=== PATIENT | male | born 1945 | race Caucasian/White ===

== ENCOUNTER 2018-03-23 12:50 | Inpatient (IN) ==
[2018-03-23 13:29] VITALS: BMI 49.2
--- NOTE | 2018-03-23 14:46 | History & Physical Report ---
History of Present Illness Date: 03/23/18 Chief complaint: cellulitis HPI: Patient is a 72-year-old male who is a direct admit from [facility] Nieves APRN due to cellulitis of the right lower extremity not responding to antibiotics. Patient reports he's been on doxycycline for approximately the last 2 weeks through the wound care clinic. He had a positive wound culture from the right foot revealing staph aureus and strep agalactiae sensitive to all antibiotics tested. He went to see his PCP today because of diarrhea and fever. States that the diarrhea started yesterday morning. He had too many stools to counts. Today he's had at least 4 liquid stools. No blood noted. He reportedly had a fever yesterday of 101 with chills. No fever this morning but does not feel well. He has also developed some pain in the back of his neck. Lab from his PCPs office revealed a white count of 19.7. Patient is diabetic with recent A1c of 10.1. He has recently had a change to his diabetic medication regimen and reports blood sugars have been in the 200s. Had removal of precancerous skin lesion on face by Dr Miller. Sutures to be removed 03/26 per pt. Review of Systems All systems PM: 10-point ROS was reviewed, no additional remarkable complaints except (muscular pain to the posterior neck, diarrhea, fever yesterday, increased redness and swelling of the right lower extremity, chronic diabetic foot wound, peripheral neuropathy) Past Medical History Medical History: Medical History (Last Reviewed 03/23/18 @ 11:05 by SOLANGE Ryan) BPH associated with nocturia (Chronic) Onychomycosis of multiple toenails with type 2 diabetes mellitus and peripheral neuropathy (Chronic) Hypertension (Chronic) Type 2 diabetes mellitus (Chronic) Obesity (Chronic) Hypercholesteremia (Chronic) Adenomatous polyps (Chronic) Sarcoidosis (Chronic) Surgical History: R knee arthroscopy 2006. R knee replacement 2008. colonoscopy 2015 polyps. Family History: Family History Father , Pancreatic cancer Pancreatic cancer Heart attack Diabetes Mother , 88 Hypercholesteremia Metastatic squamous cell carcinoma Family History: As Above - Social History Smoking status: Never smoker Household members: spouse Current occupational status: retired Current residence: Apartment/Private Home Social history: Mary Ellen Nieves APRN-PCP Medications Home Medications Medication Instructions Recorded Confirmed Type Lysine [l-Lysine] 500 mg PO HS #0 tab 01/05/15 03/23/18 History Advil PM (Ibuprofen 200 2 tab PO PRN PRN tab 04/17/17 03/23/18 History mg-diphenhydramine mg tablet) multivitamin tablet 1 cap PO QAM 04/17/17 03/23/18 History easy touch pen needle See Label Instructions .ROUTE 02/03/18 03/23/18 Rx .COMPLEX #100 each Prilosec (Omeprazole) 20 mg 20 mg PO BID #60 cap 02/12/18 03/23/18 Rx capsule,delayed release polyethylene glycol 3350 17 1 dose PO DAILY 03/03/18 03/23/18 History gram/dose oral powder Foramet (metformin ER) 500 mg 1,000 mg PO BID 03/20/18 03/23/18 History tablet, 24hr Lantus Solostar (insulin glargine) 75 unit SQ BID #45 ml 03/20/18 03/23/18 Rx 100 unit/mL (3 mL) PEN Novolog FlexPen (insulin aspart) 15 unit SQ TIDWM ml 03/20/18 03/23/18 History 100 unit/mL PEN solifenacin 5 mg tablet 5 mg PO HS #90 tab 03/20/18 03/23/18 Rx wheat dextrin 3 gram/3.8 gram oral See Label Instructions PO BID 03/20/18 History powder whey protein isolate 6 gram-25 See Label Instructions PO DAILY g 03/20/1803/23 History kcal/7 gram oral powder Atorvastatin [Lipitor] 40 mg PO HS 03/23/18 03/23/18 History Blood Sugar Diagnostic [Contour 0 strip .ROUTE .MEDSUPPLY 03/23/18 03/23/18 History Test Strip] Calcium 250 + D [Os Reggie + D] 2 tab PO BID 03/23/18 03/23/18 History Dutasteride 0.5 mg PO HS 03/23/18 03/23/18 History Famotidine [Pepcid] 1 tab PO WS PRN 03/23/18 03/23/18 History Lisinopril/Hctz 20/25 [Prinzide 1 tab PO DAILY 03/23/18 03/23/18 History 20/25] Sennosides [Ex-Lax] 15 mg PO HS PRN 03/23/18 03/23/18 History doxycycline hyclate 100 mg tablet 100 mg PO BID 03/23/18 03/23/18 History Allergies Allergy/AdvReac Type Severity Reaction Status Date / Time No Known Drug Allergies AdvReac Unknown Verified 03/23/18 13:27 Exam Vital Signs: Temperature 97.8 F 03/23/18 13:49 Pulse Rate 90 03/23/18 13:49 Respiratory Rate 22 03/23/18 13:49 Blood Pressure 130/66 03/23/18 13:49 Pulse Oximetry 94 03/23/18 13:49 Height/Weight/BMI: Height 1.73 m Weight 147 kg Body Mass Index 49.2 - Constitutional Present: no acute distress, well nourished, well developed - Routine HEENT Exam Head: Present: normocephalic, atraumatic Eye: Present: EOMI, PERRL ENT: Present: mucous membranes moist, oropharynx clear - Routine Neck Exam Present: supple, tenderness (posterior neck. No meningeal signs.). Absent: lymphadenopathy - Routine Respiratory Exam Present: CTA bilaterally. Absent: wheezes - Routine Cardiovascular Exam Present: RRR, no murmur - Routine Abdominal Exam Present: soft, normoactive bowel sounds. Absent: tenderness, distended - Routine Extremities Exam Present: edema (right lower extremity. He has erythema extending up the right lower leg. This is outlined in permanent marker. He has no tenderness. Neuropathy at least up to the knees. Diabetic foot ulcer to the ball of the right foot showing signs of healing. No significant surrounding erythema.), normal capillary refill - Routine Skin Exam Present: dry, warm Comments: incision with sutures to R cheek - no sign of infection - Routine Neurological Exam Present: alert, oriented X3, CN II-XII intact peripheral neuropathy - Routine Psychiatric Exam Present: normal affect, cooperative Results - Labs CBC & Chem 7: 03/23/18 14:45 Assessment and Plan (1) Cellulitis and abscess of right lower extremity Current visit: Yes Status: Acute (2) Diabetic foot ulcer Problem details: Right 1st MT head Current visit: Yes Status: Acute Assessment and Plan: Assessment RLE cellulitis - failed OP tx with doxy Diabetic foot ulcer, right first metatarsal-RLL Acute diarrhea - r/o c. diff given recent/current use of atbx Leukocytosis - POA S/p skin bx on face (Dr Miller) - sutures to be removed 03/26/18 BPH associated with nocturia Hypertension Type 2 diabetes mellitus - A1C 10.1 (02/27) Peripheral neuropathy Obesity Hypercholesteremia Adenomatous polyps Sarcoidosis Plan Admit, IP. Stay likely to exceed 2 overnights to treat infection and given his comorbidities. Start Ancef 1gm q 6 hrs IV for cellulitis. BC x 2 prior to atbx. CRP, lactate and CMP. Repeat CBC and BMP in am to follow blood counts and renal function. Check venous doppler to r/o DVT of RLE. Consult Dr. Bautista for diabetic foot ulceration. Sutures on face to be removed 03/26 if pt is still hospitalized. Check stool for c diff. If neg, will check full GI panel. Accuchecks. Adjust insulin as needed. Lovenox for DVT PPx. DNR. Care to return to [facility] APR[facility] on dismissal. DVT Prophylaxis: SCD's, Lovenox Resuscitation Status: Do Not Resuscitate - Physician Narrative Physician: Vaishali Tolliver MD Narrative: Date: 03/23/18 Time: 163 I have independently evaluated and examined this patient. I reviewed the chart, the patient's history, and the [employer]/PA's documented findings as above. We discussed and formulated the assessment and plan as above with additions as below: Mr. Ahmadi describes onset of malaise with temperature of 101/chills yesterday. He has had increased redness at the right ankle and vaughn accompanying increased drainage from wound at the base of his right first metatarsal. The wound has been previously cultured at the wound care clinic and grown out MARY ALICE and group B strep being treated with doxycycline. Diarrhea as noted above. Last A1c was 10.1 on 03/10/18. NAD, alert, fluent speech Respirations nonlabored Moderate erythema extending from the ankle to the mid vaughn on the right with faint erythema from the mid vaughn to just below the right knee; irregular border , does not extend posteriorly 1 cm punched out ulceration over the right first metatarsal head with clean base and pale tissue at the margins but no necrotic tissue or obvious purulent drainage at present. Dorsal surface of the right foot is not erythematous or hot. WBC obtained prior to arrival this morning 19.7 with 81% neutrophils, 9% lymphocytes; chemistries notable for GFR 74 and alkaline phosphatase 50. CRP 86.4 and lactic acid 1.5. Cellulitis-likely GBS; Ancef initiated, monitor clinically. Wound consult/Dr. Bautista. r/o C. diff, r/o osteo R-foot. Monitor blood sugars-recently converted to short acting insulin in conjunction with Lantus (previously on Lantus) and will likely require dose adjustments with infection/treatment. Recent outpatient records reviewed, discussed with primary provider prior to admission. Sepsis Assessment - Evaluation SIRS Criteria: temperature > 100.9 (by hx), WBC > 12,000, RR > 20 Severe Sepsis: none seen Hospital Course Summary Disclaimer: The visit summary below is not to be considered part of the above Progress Note. Hospital Course: 03/23/18 Admit, IP. Stay likely to exceed 2 overnights to treat infection and given his comorbidities. Start Ancef 1gm q 6 hrs IV for cellulitis. BC x 2 prior to atbx. CRP, lactate and CMP. Repeat CBC and BMP in am to follow blood counts and renal function. Check venous doppler to r/o DVT of RLE. Consult Dr. Bautista for diabetic foot ulceration. Sutures on face to be removed 03/26 if pt is still hospitalized. Check stool for c diff. If neg, will check full GI panel. Accuchecks. Adjust insulin as needed. Lovenox for DVT PPx. DNR. Care to return to [facility] Nieves APRN on dismissal.
[2018-03-23] MEDS: CEFAZOLIN 1 G in NS 100 ML IV SCH ×2 (14:54→21:10)
--- NOTE | 2018-03-23 15:14 | Ultrasound Report ---
EXAM: US venous doppler LE RT LOCATION OF DICTATION: [place] HISTORY: RLE swelling COMPARISON: No prior studies available for comparison. TECHNIQUE: Multiple real-time grayscale sonographic images were obtained of the right lower extremities with color flow and spectral analysis. FINDINGS: The right common femoral, femoral, deep femoral, popliteal, posterior tibial, and peroneal veins are widely patent without filling defects. These vessels demonstrate normal response to augmentation and compression. There are no abnormal fluid collections within the surrounding soft tissues. IMPRESSION: No evidence for right lower extremity deep venous thrombosis. .
[2018-03-23] MEDS ORDERED: FAMOTIDINE 20 MG TABLET PO PRN (16:33)
[2018-03-23] MEDS: INSULIN ASPART 100unit/ml INJECTION SQ SCH (17:18)
[2018-03-23] MEDS: OMEPRAZOLE 20 MG CAPSULE PO SCH (17:19)
[2018-03-23] MEDS: LYSINE 500 MG TABLET PO SCH (21:09)
[2018-03-23] MEDS: DUTASTERIDE 0.5 MG CAPSULE PO SCH (21:09)
[2018-03-23] MEDS: SOLIFENACIN 5mg TABLET PO SCH (21:09)
[2018-03-23] MEDS: INSULIN GLARGINE 100unit/ml INJECTION SQ SCH (21:14)
[2018-03-23] MEDS ORDERED: NS FLUSH BAG 500ml IV PRN (21:18)
--- NOTE | 2018-03-23 21:29 | Consultation ---
DATE OF CONSULTATION 03/23/2019 FINDINGS Mr. Ahmadi is a 72-year-old gentleman whom I was asked to see today as a result of a right diabetic foot ulceration associated with cellulitis. Mr. Ahmadi informs me that I have taken care of him in the past. Patient states that in 2010 he had a similar diabetic foot ulcer at the same location. The patient states that earlier this year in November he had a recurrence of his right diabetic foot ulcer. He states that he has been taken care of through our wound center since November. The patient states that this wound has been quite slow to heal over the last several months. The patient states he recently developed some redness to his right lower extremity and was placed on oral antibiotics consisting of doxycycline. Despite these oral antibiotics the "redness" of his leg has failed to improve. He also has begun to experience some loose stools. Given the failure of this cellulitis to resolve on an outpatient basis the patient was admitted to our facility for further evaluation and care. PAST MEDICAL HISTORY, PAST SURGICAL HISTORY, MEDICATIONS, ALLERGIES, SOCIAL HISTORY, FAMILY HISTORY, REVIEW OF SYSTEMS Performed by my nurse practitioner, Derick Cam APRN. PHYSICAL EXAMINATION GENERAL: Mr. Ahmadi is a 72-year-old gentleman who was seen late this evening. He did not appear to be in any acute distress and was in good spirits. VITAL SIGNS: Temperature 97.3, pulse 74, respirations 18, blood pressure 137/73 , SAO2 94% on room air. HEENT: Normocephalic. Pupils are equally round and react to light and accommodation. NECK: Supple without lymphadenopathy. CHEST: Clear to auscultation bilaterally. HEART: Regular rate and rhythm. Normal S1 and S2 without gallops, murmurs or clicks. ABDOMEN: Palpation of the abdomen reveals it to be soft and nontender. I do not appreciate any evidence for hepatosplenomegaly nor abnormal masses. EXTREMITIES: Attention was focused to the right lower extremity. Patient does have erythema extending up to the [id number] right anterior tibial region. Skin is somewhat warm to the touch. Attention was focused to the plantar aspect of his foot. Patient does have an open right diabetic foot ulcer that does extend into the underlying subcutaneous tissues. The wound was not probed this evening. There was no purulent material coming forth from the open wound. The wound itself was only on the order of about 8 mm in diameter. Visibly, there was no significant necrotic tissue present. NEURO: Cranial nerves II-XII grossly intact. Patient is without focal motor or sensory deficits. LABORATORY/RADIOGRAPHIC EVALUATION The patient had a CMP obtained that was without marked abnormalities. Glucose was slightly elevated at 114. ALT was slightly elevated at 54. C. diff. toxin has been ordered but the patient has not had a loose stool since admission. ASSESSMENT 72-year-old gentleman with Velasco grade 2 right diabetic foot ulcer with associated cellulitis that has failed outpatient therapy. PLAN Tomorrow I will spend more time reviewing his wound care chart. Will see if he has any evidence for osteomyelitis. Will evaluate the wound more formally at the bedside to see if bone is able to be probed to suggest underlying osteomyelitis. I agree with current care of the patient at this time. He has been placed on Ancef for his cellulitis. Blood cultures have been obtained. C. diff. toxin has also been obtained, given his history for diarrhea. Tomorrow when the wound is more formally probed, we may attempt to obtain some deeper cultures from within the wound to guide antibiotic therapy. Will also see if there are any prior microbiology reports through the wound center tomorrow when his EMR is more carefully evaluated. PHYLICIA
[2018-03-24] MEDS: CEFAZOLIN 1 G in NS 100 ML IV SCH ×4 (03:03→20:18)
[2018-03-24] MEDS: SALINE FLUSH 10ml SYRINGE IV PRN (03:03)
[2018-03-24] MEDS: OMEPRAZOLE 20 MG CAPSULE PO SCH ×2 (06:04→17:11)
--- NOTE | 2018-03-24 08:30 | General Surgery Consult Note ---
Consult date: 03/24/18 Attending Physician: Vaishali Tolliver MD [facility] Patient Stated Medical History Hypertension Yes Sleep Apnea No Diabetes Mellitus Type 2 Yes Gastroesophageal Reflux Yes Disease Other GI Yes: CONSTIPATION, diadeticulcer Hx Benign Prostatic Yes Hyperplasia Other Infectious Yes: chicken pox and measles as child Clinic Medical History (Last Reviewed 03/23/18 @ 11:05 by SOLANGE Ryan) BPH associated with nocturia (Chronic Medical) Onychomycosis of multiple toenails with type 2 diabetes mellitus and peripheral neuropathy (Chronic Medical) Hypertension (Chronic Medical) Type 2 diabetes mellitus (Chronic Medical) Obesity (Chronic Medical) Hypercholesteremia (Chronic Medical) Adenomatous polyps (Chronic Medical) Sarcoidosis (Chronic Medical) Surgical History: R knee arthroscopy 2005. R knee replacement 2007. Colonoscopy tubulovillous adenoma 3 01/05/2015. Colonoscopy adenomatous polyps 11/06/2017 Dr. Tirado. Colonoscopy adenomatous polyps 4 11/08/2010 Dr. Tirado. Right foot surgical debridement 09/13/2011 Dr. Bautista. Delayed primary closure right foot wound 10/18/2011. Full thickness skin graft right foot 12/26/2011. Mediastinal endoscopy 07/30/2010 sarcoidosis Family History: Family History (Last Reviewed 03/23/18 @ 11:05 by SOLANGE Ryan) Father , Pancreatic cancer Pancreatic cancer Heart attack age 73 Diabetes Mother , 88 Hypercholesteremia Metastatic squamous cell carcinoma of the mouth to the brain - Social History Smoking status: Never smoker second hand exposure: No Alcohol intake frequency: does not drink Household members: spouse Current occupational status: retired Does patient use chewing tobacco?: No Current residence: Apartment/Private Home Medications Home Medications Medication Instructions Recorded Confirmed Type Lysine [l-Lysine] 500 mg PO HS #0 tab 01/05/15 03/23/18 History Advil PM (Ibuprofen 200 2 tab PO PRN PRN tab 04/17/17 03/23/18 History mg-diphenhydramine mg tablet) multivitamin tablet 1 cap PO QAM 04/17/17 03/23/18 History easy touch pen needle See Label Instructions .ROUTE 02/03/18 03/23/18 Rx .COMPLEX #100 each Prilosec (Omeprazole) 20 mg 20 mg PO BID #60 cap 02/12/18 03/23/18 Rx capsule,delayed release polyethylene glycol 3350 17 1 dose PO DAILY 03/03/18 03/23/18 History gram/dose oral powder Foramet (metformin ER) 500 mg 1,000 mg PO BID 03/20/18 03/23/18 History tablet, 24hr Lantus Solostar (insulin glargine) 75 unit SQ BID #45 ml 03/20/18 03/23/18 Rx 100 unit/mL (3 mL) PEN Novolog FlexPen (insulin aspart) 15 unit SQ TIDWM ml 03/20/18 03/23/18 History 100 unit/mL PEN solifenacin 5 mg tablet 5 mg PO HS #90 tab 03/20/18 03/23/18 Rx wheat dextrin 3 gram/3.8 gram oral See Label Instructions PO BID 03/20/18 History powder whey protein isolate 6 gram-25 See Label Instructions PO DAILY g 03/20/1803/23 History kcal/7 gram oral powder Atorvastatin [Lipitor] 40 mg PO HS 03/23/18 03/23/18 History Blood Sugar Diagnostic [Contour 0 strip .ROUTE .MEDSUPPLY 03/23/18 03/23/18 History Test Strip] Calcium 250 + D [Os Reggie + D] 2 tab PO BID 03/23/18 03/23/18 History Dutasteride 0.5 mg PO HS 03/23/18 03/23/18 History Famotidine [Pepcid] 1 tab PO WS PRN 03/23/18 03/23/18 History Lisinopril/Hctz 20/25 [Prinzide 1 tab PO DAILY 03/23/18 03/23/18 History 20/25] Sennosides [Ex-Lax] 15 mg PO HS PRN 03/23/18 03/23/18 History doxycycline hyclate 100 mg tablet 100 mg PO BID 03/23/18 03/23/18 History Allergies Allergy/AdvReac Type Severity Reaction Status Date / Time No Known Drug Allergies AdvReac Unknown Verified 03/23/18 13:27 Review of Systems 10-point ROS: negative except for HPI and the following: - Eyes/Ears/Nose/Throat Eyes: Present: other (wears glasses) Ear Nose Throat: Absent: hearing problems - Cardiovascular Cardiovascular: Absent: chest pain (angina) - Respiratory Respiratory: Absent: sleep apnea - Gastrointestinal Gastrointestinal: Present: diarrhea (at home, none since admission.) - Genitourinary Additional comments: Positive for urinary urgency and occasional dribbling. - Endocrine Endocrine: Present: diabetes - Vital Signs Last Vital Signs Temp 98.6 F 03/24/18 07:00 Pulse 79 03/24/18 07:00 Resp 20 03/24/18 07:00 BP 142/87 H 03/24/18 07:00 Pulse Ox 94 03/24/18 07:00 - Laboratory Result Diagrams: 03/24/18 04:17 03/24/18 04:17 - Microbiogy Microbiology 03/23/18 14:41 Peripheral/Iv Start Blood Culture - Preliminary Culture Initiated - Results Pending 03/23/18 14:45 Peripheral/Iv Start Blood Culture - Preliminary Culture Initiated - Results Pending General Surgery Results - Results Labs: 03/24/18 04:17 03/24/18 04:17 Microbiology: Microbiology 03/23/18 14:41 Peripheral/Iv Start Blood Culture - Preliminary Culture Initiated - Results Pending 03/23/18 14:45 Peripheral/Iv Start Blood Culture - Preliminary Culture Initiated - Results Pending
[2018-03-24] MEDS: INSULIN GLARGINE 100unit/ml INJECTION SQ SCH ×2 (08:38→20:23)
[2018-03-24] MEDS: INSULIN ASPART 100unit/ml INJECTION SQ SCH ×3 (08:38→17:11)
[2018-03-24] MEDS: ENOXAPARIN 40 MG/0.4 ML INJECTION SQ SCH (08:38)
[2018-03-24] MEDS: LISINOPRIL/HCTZ 20/25 MG TABLET PO SCH (08:39)
[2018-03-24] MEDS ORDERED: ACETAMINOPHEN 325 MG TABLET PO PRN (09:55)
[2018-03-24] MEDS ORDERED: BISACODYL 10 MG SUPPOSITORY RECTALLY PRN (09:55)
--- NOTE | 2018-03-24 13:56 | Progress Note ---
- Date 03/24/18 Subjective: Patient is seen sitting in his bed this afternoon in f-u of RLL cellulitis, fever, diarrhea and diabetic foot wound. He reports he "is bored." He feels fine. No fever, chills, n/v or pain. He has had no further diarrhea since he was in his doctor's office prior to admission other than the stool he produced this am which was formed. Objective Vital signs: Temperature 98.6 F 03/24/18 07:00 Pulse Rate 79 03/24/18 07:00 Respiratory Rate 20 03/24/18 07:00 Blood Pressure 142/87 H 03/24/18 07:00 Pulse Oximetry 94 03/24/18 07:00 Height/Weight/BMI: Height 1.73 m Weight 145 kg Body Mass Index 49.2 - Constitutional Present: no acute distress, well nourished, well developed - Routine HEENT Exam Head: Present: normocephalic, atraumatic - Routine Respiratory Exam Present: CTA bilaterally. Absent: wheezes - Routine Cardiovascular Exam Present: RRR, no murmur - Routine Abdominal Exam Present: soft, non distended, non tender - Routine Extremities Exam Present: normal capillary refill Comments: edema and erythema to RLL has significantly improved since yesterday. His foot ulcer shows continued signs of healing with mild drainage on the dressing. No surrounding erythema of the foot wound. - Routine Skin Exam Present: dry, warm - Routine Neurological Exam Present: alert, oriented X3 - Routine Lymphatic Exam Lymphatic: Absent: adenopathy - Routine Psychiatric Exam Present: normal affect, cooperative Results - Labs CBC & Chem 7: 03/24/18 04:17 03/24/18 04:17 Microbiology Results: Microbiology 03/23/18 14:41 Peripheral/Iv Start Blood Culture - Preliminary Culture Initiated - Results Pending 03/23/18 14:45 Peripheral/Iv Start Blood Culture - Preliminary Culture Initiated - Results Pending Assessment and Plan (1) Cellulitis and abscess of right lower extremity Current visit: Yes Status: Acute (2) Diabetic foot ulcer Problem details: Right 1st MT head Current visit: Yes Status: Acute Assessment and Plan: Assessment RLE cellulitis - failed OP tx with doxy Diabetic foot ulcer, right first metatarsal-RLL Velasco grade 2 right diabetic foot ulcer with associated cellulitis that has failed outpatient therapy Acute diarrhea - r/o c. diff given recent/current use of atbx Leukocytosis (POA) S/p skin bx on face (Dr Miller) - sutures to be removed 03/26/18 BPH associated with nocturia Hypertension Type 2 diabetes mellitus - A1C 10.1 (02/27) Peripheral neuropathy Hypercholesteremia Adenomatous polyps Sarcoidosis Morbid obesity with BMI 48.6 Plan Patient significantly improved. Cellulitis improving with Ancef. WBC improving 20.5-->14.8. Dr. Bautista saw pt yesterday and plans to debride wound sometime today. C diff testing not performed as pt has not had any further liquid stools. BS's reviewed. Continue to trend - no adjustments to insulin at present. DVT Prophylaxis: Lovenox Resuscitation Status: Do Not Resuscitate - Time spent with patient Time with patient PN: 25 minutes - Physician Narrative Physician: Phil Ge MD Narrative: Date: 03/24/18 Time: 1507 Have independently interviewed and examined pt. Chart reviewed. Case discussed with my PA. Care plan developed with my supervision; agree with above. Doing well today. No f/c. Not having loose stool-if anything, more constipated this am. No nausea. Not having pain in leg. Breathing well. Lungs: decreased, no distress CV: regular AB: soft nt/nd EXT: Erythema to LE showing decrease from prior demarkation. MSE: awake alert appropriate Plan: Continue with cefazolin for antimicrobial coverage. Wound care and debridement as per Dr Bautista. Monitor lab. Clinically showing improvement. Hospital Course Summary Disclaimer: The visit summary below is not to be considered part of the above Progress Note. Hospital Course: 03/23/18 Admit, IP. Stay likely to exceed 2 overnights to treat infection and given his comorbidities. Start Ancef 1gm q 6 hrs IV for cellulitis. BC x 2 prior to atbx. CRP, lactate and CMP. Repeat CBC and BMP in am to follow blood counts and renal function. Venous doppler neg for DVT. Consult Dr. Bautista for diabetic foot ulceration. Sutures on face to be removed 03/26 if pt is still hospitalized. Check stool for c diff. If neg, will check full GI panel. Accuchecks. Adjust insulin as needed. Lovenox for DVT PPx. DNR. Care to return to Mayr Ellen Nieves APRN on dismissal. 03/24/18 Patient significantly improved. Cellulitis improving with Ancef. WBC improving 20.5-->14.8. Dr. Bautista saw pt yesterday and plans to debride wound sometime today. C diff testing not performed as pt has not had any further liquid stools.
--- NOTE | 2018-03-24 19:21 | Progress Note ---
DATE OF SERVICE 03/24/2018 FINDINGS Mr. Ahmadi was seen this evening on rounds. He was without complaints. He states that he has received several dose of antibiotics today. The patient states that he believes that the redness involving his right lower extremity has begun to subside. He states it is still "warm to the touch." PHYSICAL EXAM VITAL SIGNS: T-max 99.3. Current vitals include temperature 98.6, pulse 76, respirations 18 feet, blood pressure 114/67, SAO2 95% on room air. HEENT: Normocephalic. Pupils are equally round and react to light and accommodation. CHEST: Clear to auscultation bilaterally. HEART: Regular rate and rhythm. Normal S1 and S2 without gallops, murmurs or clicks. EXTREMITIES: Attention was focused to the plantar aspect of the right foot. Overlying the first metatarsal head the patient does have a small opening on the order of about 8 mm in diameter. The wound was carefully inspected. There is a hypertrophic rim of callus surrounding the wound. Wound was probed with a hemostat as well as a curette. There was one small opening present within the depth of the wound. I did feel that one could appreciate bone with a hemostat being advanced into the small opening, i.e., bone was able to be palpated within the base of the wound, indicative of possible osteomyelitis. The patient 's erythema is subsiding involving his anterior tibial surface. However, the skin is still erythematous distally and is warm to the touch. ASSESSMENT 72-year-old gentleman with right diabetic foot ulcer with associated cellulitis. Rule out osteomyelitis. PLAN Given the fact that bone is able to be probed within the depth of the wound it was my recommendation that we go ahead and proceed with an MRI of his right foot to rule out osteomyelitis. Will order MRI for tomorrow. Will await results and proceed accordingly. PHYLICIA
[2018-03-24] MEDS: DUTASTERIDE 0.5 MG CAPSULE PO SCH (20:18)
[2018-03-24] MEDS: LYSINE 500 MG TABLET PO SCH (20:18)
[2018-03-24] MEDS: SOLIFENACIN 5mg TABLET PO SCH (20:18)
[2018-03-25] MEDS: CEFAZOLIN 1 G in NS 100 ML IV SCH ×4 (03:01→21:45)
[2018-03-25] MEDS: OMEPRAZOLE 20 MG CAPSULE PO SCH ×2 (05:41→17:43)
[2018-03-25] MEDS: INSULIN ASPART 100unit/ml INJECTION SQ SCH ×3 (08:32→17:43)
[2018-03-25] MEDS: INSULIN GLARGINE 100unit/ml INJECTION SQ SCH ×2 (08:32→21:47)
[2018-03-25] MEDS: ENOXAPARIN 40 MG/0.4 ML INJECTION SQ SCH (08:32)
[2018-03-25] MEDS: SALINE FLUSH 10ml SYRINGE IV PRN ×2 (08:35→21:48)
[2018-03-25] MEDS: LISINOPRIL/HCTZ 20/25 MG TABLET PO SCH (08:35)
--- NOTE | 2018-03-25 08:47 | Progress Note ---
- Date 03/25/18 Subjective: Patient is seen this morning in follow-up of right lower leg cellulitis and diabetic foot ulcer. He reports he is feeling fine. No fever or chills. He is having some complaint of pain in the upper aspect of the right lower leg which is new for him. He states he saw Dr. Bautista and Dr. Bautista found a "tunnel " in his foot and plans to check an MRI of his foot today. He has had no further stools since the one stool he had yesterday. Appetite is good. No nausea or vomiting. Objective Vital signs: Temperature 98.0 F 03/25/18 07:41 Pulse Rate 79 03/25/18 07:41 Respiratory Rate 18 03/25/18 07:41 Blood Pressure 134/82 03/25/18 07:41 Pulse Oximetry 94 03/25/18 07:41 Height/Weight/BMI: Height 1.73 m Weight 144.5 kg Body Mass Index 49.2 - Constitutional Present: no acute distress, well nourished, well developed - Routine HEENT Exam Head: Present: normocephalic, atraumatic - Routine Respiratory Exam Present: CTA bilaterally. Absent: wheezes - Routine Cardiovascular Exam Present: RRR, no murmur - Routine Abdominal Exam Present: soft, non distended, non tender - Routine Extremities Exam Present: no edema (left lower extremity), normal capillary refill Comments: Right foot ulceration on the plantar surface over the first metatarsal head with some callus formation. Erythema of the right lower extremity is receding from the previous outline. Swelling improved from initial evaluation. Still has some erythema and swelling distally. The area where his pain is is several cm distal to the anterior knee and there is no erythema or abnormality in this area at this time. - Routine Skin Exam Present: dry, warm - Routine Neurological Exam Present: alert, oriented X3 - Routine Lymphatic Exam Lymphatic: Absent: adenopathy - Routine Psychiatric Exam Present: normal affect, cooperative Results - Labs CBC & Chem 7: 03/25/18 04:06 03/25/18 04:06 Microbiology Results: Microbiology 03/23/18 14:41 Peripheral/Iv Start Blood Culture - Preliminary No Growth After 1 Day 03/23/18 14:45 Peripheral/Iv Start Blood Culture - Preliminary No Growth After 1 Day Assessment and Plan (1) Cellulitis and abscess of right lower extremity Current visit: Yes Status: Acute (2) Diabetic foot ulcer Problem details: Right 1st MT head Current visit: Yes Status: Acute Assessment and Plan: Assessment RLE cellulitis - failed OP tx with doxy Diabetic foot ulcer, right first metatarsal Velasco grade 2 right diabetic foot ulcer with associated cellulitis that has failed outpatient therapy Acute diarrhea -resolved on day of admission Leukocytosis (POA)-improving S/p skin bx on face (Dr Miller) - sutures to be removed 03/26/18 BPH associated with nocturia Hypertension Type 2 diabetes mellitus - A1C 10.1 (02/27) Peripheral neuropathy Hypercholesteremia Adenomatous polyps Sarcoidosis Morbid obesity with BMI 48.6 Plan Leukocytosis continues to improve - 20.5-->14.8-->11.5. Vitals are stable. Patient has MRI of the right foot to rule out osteomyelitis scheduled for a later this morning per Dr. Bautista Day #3 of Ancef. Sugars reviewed and are stable. Continue current insulin regimen. DVT Prophylaxis: SCD's Resuscitation Status: Do Not Resuscitate - Time spent with patient Time with patient PN: 25 minutes - Physician Narrative Physician: Phil Ge MD Narrative: Date: 03/25/18 Time: 1742 Have independently interviewed & examined pt. Chart reviewed. Case discussed with CM & my PA. Care plan developed with my supervision; agree with above. Doing well except not stools (worried about passing flatus due to all the diarrhea he had before admission). Notes ab bloating and gas-passing flatus helps. NO f/c. No leg pain. Encouraged that erythema of leg decreasing. Lungs: clear bilaterally CV: regular AB: soft obese nt/nd BS decreased EXT: continued decrease erythema to leg. MSE: awake alert appropriate Plan: Continue with Ancef for coverage, clinically improving. MRI showing possible Osteomyelitis-likely need further debridement by Dr Bautista. Will start routine Miralax due to constipation-prn MOM and Dulcolax (does take bowel medications routinely at home). Hospital Course Summary Disclaimer: The visit summary below is not to be considered part of the above Progress Note. Hospital Course: 03/23/18 Admit, IP. Stay likely to exceed 2 overnights to treat infection and given his comorbidities. Start Ancef 1gm q 6 hrs IV for cellulitis. BC x 2 prior to atbx. CRP, lactate and CMP. Repeat CBC and BMP in am to follow blood counts and renal function. Venous doppler neg for DVT. Consult Dr. Bautista for diabetic foot ulceration. Sutures on face to be removed 03/26 if pt is still hospitalized. Check stool for c diff. If neg, will check full GI panel. Accuchecks. Adjust insulin as needed. Lovenox for DVT PPx. DNR. Care to return to [facility] on dismissal. 03/24/18 Patient significantly improved. Cellulitis improving with Ancef. WBC improving 20.5-->14.8. Dr. Bautista feels the wound tunnels to the bone. Has scheduled MRI of the foot to rule out osteomyelitis for tomorrow. C diff testing not performed as pt has not had any further liquid stools. 03/25/18 Leukocytosis continues to improve - 20.5-->14.8-->11.5. Vitals are stable. Patient has MRI of the right foot to rule out osteomyelitis scheduled for a later this morning per Dr. Bautista Day #3 of Anc. Sugars reviewed and are stable. Continue current insulin regimen.
[2018-03-25] MEDS ORDERED: GADOTERIDOL 279.3mg/ml - 10ml vial IVP ONE (10:27)
[2018-03-25] MEDS ORDERED: SALINE FLUSH 10ml SYRINGE ONE (10:28)
--- NOTE | 2018-03-25 12:22 | General Surgery Progress Note ---
Subjective Narrative: Pt feeling well overall. Reports mild pain distal to R knee. He states this started yesterday. No known injury. States diarrhea has subsided; he had one BM yesterday and none today. - Vital Signs Last Vital Signs Temp 98.0 F 03/25/18 07:41 Pulse 79 03/25/18 07:41 Resp 18 03/25/18 07:41 BP 134/82 03/25/18 07:41 Pulse Ox 94 03/25/18 07:41 - Laboratory Result Diagrams: 03/25/18 04:06 03/25/18 04:06 - Microbiogy Microbiology 03/23/18 14:41 Peripheral/Iv Start Blood Culture - Preliminary No Growth After 1 Day 03/23/18 14:45 Peripheral/Iv Start Blood Culture - Preliminary No Growth After 1 Day - Radiology 03/25/18 MRI report pending - Abnormal Exam Abdominal: obese Skin: Right anterior lower leg has warmth and erythema with diffuse borders, decreased in size since admission. Ulceration to plantar surface of right foot over first metatarsal head with surrounding callus. Additional Abnormal Findings: Tender to palpation over anterior R lower leg, approximately 5 cm distal to patella. No associated erythema or skin changes. - Normal Exam General: awake, alert, oriented, no acute distress Abdominal: soft, no organomegaly, no guarding, no rebound, non-tender Psychiatric: normal affect, normal mood Neurological: CN 2-12 grossly intact Assessment and Plan (1) Diabetic foot ulcer Current Visit: Yes Status: Acute Qualifiers: Laterality: right Problem details: Right 1st MT head Plan: Continue cefazolin. Further tx will be guided by MRI results. Hospital Course Summary Disclaimer: The visit summary below is not to be considered part of the above Progress Note. Hospital Course: 03/23/18 Admit, IP. Stay likely to exceed 2 overnights to treat infection and given his comorbidities. Start Ancef 1gm q 6 hrs IV for cellulitis. BC x 2 prior to atbx. CRP, lactate and CMP. Repeat CBC and BMP in am to follow blood counts and renal function. Venous doppler neg for DVT. Consult Dr. Bautista for diabetic foot ulceration. Sutures on face to be removed 03/26 if pt is still hospitalized. Check stool for c diff. If neg, will check full GI panel. Accuchecks. Adjust insulin as needed. Lovenox for DVT PPx. DNR. Care to return to [facility] on dismissal. 03/24/18 Patient significantly improved. Cellulitis improving with Ancef. WBC improving 20.5-->14.8. Dr. Bautista feels the wound tunnels to the bone. Has scheduled MRI of the foot to rule out osteomyelitis for tomorrow. C diff testing not performed as pt has not had any further liquid stools. 03/25/18 Leukocytosis continues to improve - 20.5-->14.8-->11.5. Vitals are stable. Patient has MRI of the right foot to rule out osteomyelitis scheduled for a later this morning per Dr. Bautista Day #3 of Anc. Sugars reviewed and are stable. Continue current insulin regimen.
--- NOTE | 2018-03-25 13:21 | Magnetic Resonance Report ---
Indication: diabetic foot ulcer, rule out osteomyelitis Right foot PROCEDURE: MR foot RT wo/w con: Encounter: Initial Comparison: Right foot radiographs dated January 09, 2018 and right foot MRI dated August 30, 2011 Technique: Multiplanar multisequence MR imaging of the right foot was performed with and without contrast. Contrast: 29 mL ProHance Findings: Chronic ulcer underlying the first metatarsophalangeal joint. Interval displacement of the sesamoid bones compared to the prior study which are now splayed out to each side. The sesamoid bones demonstrate decreased T1 signal intensity compared to the prior study without focal bone marrow edema on the fluid sensitive sequences. There is interval worsening in degenerative change in the first metatarsophalangeal joint with new osteophytes on the first metatarsal head. There is however no evidence of focal bone marrow edema or enhancement in the first metatarsal head to confirm infection. There is enhancement of the plantar subcutaneous tissues in this area with a small rim-enhancing phlegmon on axial image #17 measuring 2.3 x 0.5 cm in diameter. No drainable abscess. Chronic bony abnormalities with cortical thickening in the first and second metatarsal shafts. The remaining bone marrow signal intensity is grossly normal. The Lisfranc ligament is intact. Mild to moderate degenerative change in the midfoot. Muscular signal intensity is normal. Osseous fusion of the great toe interphalangeal joint. Impression: Chronic skin ulcer underlying the first metatarsophalangeal joint with possible osteomyelitis involving the sesamoid bones of the great toe. .
--- NOTE | 2018-03-25 17:08 | Progress Note ---
DATE OF SERVICE 03/25/2018 FINDINGS Mr. Ahmadi was seen earlier this morning on rounds. He is without complaints. PHYSICAL EXAM VITAL SIGNS: Temperature 98.0, pulse 79, respirations 18, blood pressure 134/82 , SAO2 94% on room air. HEENT: Normocephalic. Pupils are equally round and react to light and accommodation. CHEST: Clear to auscultation bilaterally. HEART: Regular rate and rhythm. Normal S1 and S2 without gallops, murmurs or clicks. EXTREMITIES: Attention was focused to the right lower extremity. Patient does have decreasing erythema present involving the anterior tibial surface. Ulcer upon the right foot overlying the first metatarsal head remains stable. No evidence for coby purulent drainage coming forth from wound itself. LABORATORY/RADIOGRAPHIC EVALUATION The patient had a CBC today and his white count is improving at 11.5. BMP obtained and found to be stable. MRI of his foot has been ordered and is pending at time of dictation. ASSESSMENT 72-year-old gentleman with right diabetic foot ulceration with associated cellulitis. Prior culture polymicrobial in nature, oxacillin sensitive. PLAN Continue with current antibiotics. Will await the MRI results and proceed accordingly with further recommendations thereafter. Will continue with current wound dressings. Will continue to follow along the patient's care. PHYLICIA
[2018-03-25] MEDS ORDERED: SENNOSIDES 8.6 MG TABLET PO PRN (19:50)
[2018-03-25] MEDS: SOLIFENACIN 5mg TABLET PO SCH (21:47)
[2018-03-25] MEDS: DUTASTERIDE 0.5 MG CAPSULE PO SCH (21:47)
[2018-03-25] MEDS: LYSINE 500 MG TABLET PO SCH (21:48)
[2018-03-25] MEDS: CALCIUM 250 + VIT D 125 TABLET PO SCH (21:56)
[2018-03-26] MEDS: CEFAZOLIN 1 G in NS 100 ML IV SCH ×4 (03:26→21:30)
[2018-03-26] MEDS: OMEPRAZOLE 20 MG CAPSULE PO SCH ×2 (06:09→17:10)
[2018-03-26] MEDS: CALCIUM 250 + VIT D 125 TABLET PO SCH ×2 (08:51→21:29)
[2018-03-26] MEDS: POLYETHYL GLYCOL 3350 17gm PACKET PO SCH (08:51)
[2018-03-26] MEDS: INSULIN GLARGINE 100unit/ml INJECTION SQ SCH ×2 (08:52→21:28)
[2018-03-26] MEDS: ENOXAPARIN 40 MG/0.4 ML INJECTION SQ SCH (08:52)
[2018-03-26] MEDS: INSULIN ASPART 100unit/ml INJECTION SQ SCH ×3 (08:52→17:10)
[2018-03-26] MEDS: LISINOPRIL/HCTZ 20/25 MG TABLET PO SCH (08:52)
--- NOTE | 2018-03-26 11:26 | Progress Note ---
- Date 03/26/18 Subjective: Francesco is seen today in follow-up. He is feeling much better. Remains afebrile. Reports redness on right lower extremity is much improved. Denies any pain. Chart is reviewed for collateral information. Objective Vital signs: Temperature 97.1 F 03/26/18 07:28 Pulse Rate 66 03/26/18 07:28 Respiratory Rate 16 03/26/18 07:28 Blood Pressure 131/69 03/26/18 07:28 Pulse Oximetry 95 03/26/18 07:28 Height/Weight/BMI: Height 1.73 m Weight 144.6 kg Body Mass Index 49.2 Comments: Gen.: Patient is awake, alert. Very pleasant and appears well. Neck: Supple. No cervical lymphadenopathy. Cardiovascular: S1, S2. Regular rate and rhythm. Pulmonary: Lungs are diminished bilaterally, but clear. He is not short of air. No crackles or wheezes. Abdomen: Soft, nontender, nondistended. Morbidly obese. Bowel sounds are active 4 quadrants. Extremities: Right lower extremity, redness is much improved from previously marked lines. Dressing is in place over the the right great toe and first metatarsal joint where wound is. Some edema in the right lower extremity consistent with known cellulitis. Extremities are warm with good pedal pulses. Results - Labs CBC & Chem 7: 03/26/18 04:09 03/26/18 04:09 Microbiology Results: Microbiology 03/23/18 14:41 Peripheral/Iv Start Blood Culture - Preliminary No Growth After 2 Days 03/23/18 14:45 Peripheral/Iv Start Blood Culture - Preliminary No Growth After 2 Days Wound cx: 1. Coag neg staph, rebollar sensitive 2. GBS 3. light growth, anaerobes - Imaging and Cardiology MRI LE Additional comments: Impression: Chronic skin ulcer underlying the first metatarsophalangeal joint with possible osteomyelitis involving the sesamoid bones of the great toe. . Assessment and Plan (1) Cellulitis and abscess of right lower extremity Current visit: Yes Status: Acute (2) Diabetic foot ulcer Problem details: Right 1st MT head Current visit: Yes Status: Acute Assessment and Plan: Assessment RLE cellulitis - failed OP tx with doxy Diabetic foot ulcer, right first metatarsal Velasco grade 2 right diabetic foot ulcer with associated cellulitis - failed outpatient therapy Possible osteomyelitis involving the sesamoid bones of the great toe per MRI Acute diarrhea -resolved on day of admission Leukocytosis (POA)-improving S/p skin bx on face (Dr Miller) - sutures to be removed 03/26/18 BPH associated with nocturia Hypertension Type 2 diabetes mellitus - A1C 10.1 (02/27) Peripheral neuropathy Hypercholesteremia Adenomatous polyps Sarcoidosis Morbid obesity with BMI 48.6 GERD Plan Ancef day #4. Cultures reviewed, positive for pansensitive coag-negative staph, group B strep , and light growth of anaerobes. As patient is markedly improving on Ancef, will continue that medication for now. Consider anaerobic coverage if condition worsens, or if a bone biopsy is obtained that reveals certain anaerobic growth. Blood cultures 2 remain negative. Consider ID consult for antibiotic recommendations given likely osteomyelitis; will await further plan per Dr. Bautista. Diabetes is currently well controlled. Patient is afebrile. Normotensive on current medications. No further loose stools reported. C.Diff cancelled. Patient is on both BID PPI and PRN H2RB @ home for GERD. Lovenox for DVT px. Home soon? Joo Discussed with Dr Bautista-does not feel he needs to due further debridement. Will restart Metformin as not anticipating surgery. Consult with ID for antimicrobial recommendations-discussed with patient that likely need extended course of IV antibiotics and PICC line. Continue with wound care. Clinically improving. DVT Prophylaxis: Lovenox GI Prophylaxis: Pepcid Resuscitation Status: Do Not Resuscitate - Time spent with patient Time with patient PN: 25 minutes - Physician Narrative Physician: Phil Ge MD Narrative: Date: 03/26/18 Time: 1338 Have independently interviewed and examined pt. Chart reviewed. Case discussed with MIKE, Dr Bautista, and my SURGICAL GARMENT ASSEMBLER. Care plan developed with my supervision; agree with above. Doing well today. Not having f/c. Redness decreasing. No pain to RLE (but has neuropathy). Breathing well. Eating well. No ab pain. Not had stool, but feels he is close. Lungs: decreased bilaterally, no crackles/wheezes/distress CV: regular AB: soft nt/nd +BS EXT: slight decreased erythema MSE: awake alert appropriate Plan: Will continue with cefazolin. Discussed with Dr Bautista-does not feel he needs to due further debridement. Will restart Metformin as not anticipating surgery. Consult with ID for antimicrobial recommendations-discussed with patient that likely need extended course of IV antibiotics and PICC line. Continue with wound care. Clinically improving. Hospital Course Summary Disclaimer: The visit summary below is not to be considered part of the above Progress Note. Hospital Course: 03/23/18 Admit, IP. Stay likely to exceed 2 overnights to treat infection and given his comorbidities. Start Ancef 1gm q 6 hrs IV for cellulitis. BC x 2 prior to atbx. CRP, lactate and CMP. Repeat CBC and BMP in am to follow blood counts and renal function. Venous Doppler neg for DVT. Consult Dr. Bautista for diabetic foot ulceration. Sutures on face to be removed 03/26 if pt is still hospitalized. Check stool for c diff. If neg, will check full GI panel. Accuchecks. Adjust insulin as needed. Lovenox for DVT PPx. DNR. Care to return to [facility] on dismissal. 03/24/18 Patient significantly improved. Cellulitis improving with Ancef. WBC improving 20.5-->14.8. Dr. Bautista feels the wound tunnels to the bone. Has scheduled MRI of the foot to rule out osteomyelitis for tomorrow. C diff testing not performed as pt has not had any further liquid stools. 03/25/18 Leukocytosis continues to improve - 20.5-->14.8-->11.5. Vitals are stable. Patient has MRI of the right foot to rule out osteomyelitis scheduled for a later this morning per Dr. Bautista Day #3 of Ancef. Sugars reviewed and are stable. Continue current insulin regimen. 03/26/18 Ancef day #4. Cultures reviewed, positive for pansensitive coag-negative staph, group B strep , and light growth of anaerobes. As patient is markedly improving on Ancef, will continue that medication for now. Blood cultures [address] with Dr Bautista-does not feel he needs to due further debridement. Will restart Metformin as not anticipating surgery. Consult with ID for antimicrobial recommendations- likely need extended course of IV antibiotics and PICC line. Dr Mann to see patient tomorrow. Patient is afebrile. Normotensive on current medications. Restart Lipitor - liver enzymes normal. No further loose stools reported. C.Diff cancelled.
--- NOTE | 2018-03-26 18:03 | Progress Note ---
DATE OF SERVICE 03/26/2018 FINDINGS Mr. Ahmadi was seen earlier today on rounds. He denies any element of pain involving his right lower extremity. Previously he had some discomfort beneath the right knee involving a prior area of erythema. Patient states this pain has now completely resolved. PHYSICAL EXAM VITAL SIGNS: Afebrile, normotensive. Please refer to EMR. Last recorded vitals include temperature 97.1, pulse 56, respirations 16, blood pressure 131/ 69, SAO2 95% on room air. HEENT: Normocephalic. Pupils are equally round and react to light and accommodation. CHEST: Clear to auscultation bilaterally. HEART: Regular rate and rhythm. Normal S1 and S2 without gallops, murmurs or clicks. EXTREMITIES: Attention was focused to the right lower extremity. His prior erythema at this time has essentially resolved. I did not remove the dressing upon the plantar aspect of the foot. Allevyn foam remains to be intact. There is no periwound erythema surrounding the edge of the dressing. LABORATORY/RADIOGRAPHIC EVALUATION I did review the dictated report from his foot MRI performed yesterday. There was a chronic skin ulcer overlying the first metatarsal joint with possible osteomyelitis involving the sesamoid bones of the great toe. There was decreased T1 signal intensity compared to prior study with focal bone marrow edema. ASSESSMENT 72-year-old gentleman with Velasco grade 3 right diabetic foot ulcer. PLAN Continue with current wound care dressing regimen. Would recommend consulting Infectious Disease for further antibiotic recommendations given this MRI finding. Otherwise, will continue with current care. Patient is stable from a general surgical/wound care standpoint at this time. PHYLICIA
[2018-03-26] MEDS ORDERED: ATORVASTATIN 40 MG TABLET PO SCH (21:00)
[2018-03-26] MEDS: DUTASTERIDE 0.5 MG CAPSULE PO SCH (21:29)
[2018-03-26] MEDS: SOLIFENACIN 5mg TABLET PO SCH (21:29)
[2018-03-26] MEDS: LYSINE 500 MG TABLET PO SCH (21:30)
[2018-03-27] MEDS: CEFAZOLIN 1 G in NS 100 ML IV SCH ×2 (02:30→09:24)
[2018-03-27] MEDS: OMEPRAZOLE 20 MG CAPSULE PO SCH (05:57)
[2018-03-27] MEDS: LISINOPRIL/HCTZ 20/25 MG TABLET PO SCH (08:16)
[2018-03-27] MEDS: CALCIUM 250 + VIT D 125 TABLET PO SCH (08:17)
[2018-03-27] MEDS: ENOXAPARIN 40 MG/0.4 ML INJECTION SQ SCH (08:18)
[2018-03-27] MEDS: INSULIN ASPART 100unit/ml INJECTION SQ SCH ×2 (08:23→12:07)
[2018-03-27] MEDS: POLYETHYL GLYCOL 3350 17gm PACKET PO SCH (08:23)
--- NOTE | 2018-03-27 09:14 | General Surgery Progress Note ---
Subjective Narrative: Pt feeling well overall. He states he still occasionally feels warmth in his right lower leg but that it is improved. Denies pain in R LE. Reports diarrhea has resolved. Last BM was this morning. - Vital Signs Last Vital Signs Temp 98.4 F 03/27/18 07:25 Pulse 71 03/27/18 07:25 Resp 18 03/27/18 07:25 BP 165/88 H 03/27/18 07:25 Pulse Ox 93 03/27/18 07:25 - Laboratory Result Diagrams: 03/27/18 04:33 03/26/18 04:09 - Microbiogy Microbiology 03/23/18 14:41 Peripheral/Iv Start Blood Culture - Preliminary No Growth After 3 Days 03/23/18 14:45 Peripheral/Iv Start Blood Culture - Preliminary No Growth After 3 Days - Radiology R foot MRI 03/25/18 Findings: Chronic ulcer underlying the first metatarsophalangeal joint. Interval displacement of the sesamoid bones compared to the prior study which are now splayed out to each side. The sesamoid bones demonstrate decreased T1 signal intensity compared to the prior study without focal bone marrow edema on the fluid sensitive sequences. There is interval worsening in degenerative change in the first metatarsophalangeal joint with new osteophytes on the first metatarsal head. There is however no evidence of focal bone marrow edema or enhancement in the first metatarsal head to confirm infection. There is enhancement of the plantar subcutaneous tissues in this area with a small rim-enhancing phlegmon on axial image #17 measuring 2.3 x 0.5 cm in diameter. No drainable abscess. Chronic bony abnormalities with cortical thickening in the first and second metatarsal shafts. The remaining bone marrow signal intensity is grossly normal. The Lisfranc ligament is intact. Mild to moderate degenerative change in the midfoot. Muscular signal intensity is normal. Osseous fusion of the great toe interphalangeal joint. Impression: Chronic skin ulcer underlying the first metatarsophalangeal joint with possible osteomyelitis involving the sesamoid bones of the great toe. - Abnormal Exam Skin: R anterior tibial erythema, decreased in size. Decreased warmth. Ulcer on plantar surface of right foot overlying the first metatarsal remains stable. No surrounding erythema or purulent drainage. Additional Abnormal Findings: 1+ pitting edema R LE. SCD on L LE. - Normal Exam General: awake, alert, oriented, no acute distress Eyes: sclera clear Cardiovascular: regular rhythm, regular rate Respiratory: clear all barba, no labored breathing Abdominal: BS normo active x4, soft, no masses, no organomegaly, no guarding, no rebound, non-tender Psychiatric: normal affect, normal mood Neurological: CN 2-12 grossly intact Assessment and Plan (1) Diabetic foot ulcer Current Visit: Yes Status: Acute Qualifiers: Laterality: right Problem details: Right 1st MT head Plan: Continue current tx plan. Infectious disease has been consulted; will await their recommendations. Hospital Course Summary Disclaimer: The visit summary below is not to be considered part of the above Progress Note. Hospital Course: 03/23/18 Admit, IP. Stay likely to exceed 2 overnights to treat infection and given his comorbidities. Start Ancef 1gm q 6 hrs IV for cellulitis. BC x 2 prior to atbx. CRP, lactate and CMP. Repeat CBC and BMP in am to follow blood counts and renal function. Venous Doppler neg for DVT. Consult Dr. Bautista for diabetic foot ulceration. Sutures on face to be removed 03/26 if pt is still hospitalized. Check stool for c diff. If neg, will check full GI panel. Accuchecks. Adjust insulin as needed. Lovenox for DVT PPx. DNR. Care to return to [facility] on dismissal. 03/24/18 Patient significantly improved. Cellulitis improving with Ancef. WBC improving 20.5-->14.8. Dr. Bautista feels the wound tunnels to the bone. Has scheduled MRI of the foot to rule out osteomyelitis for tomorrow. C diff testing not performed as pt has not had any further liquid stools. 03/25/18 Leukocytosis continues to improve - 20.5-->14.8-->11.5. Vitals are stable. Patient has MRI of the right foot to rule out osteomyelitis scheduled for a later this morning per Dr. Bautista Day #3 of Ancef. Sugars reviewed and are stable. Continue current insulin regimen. 03/26/18 Ancef day #4. Cultures reviewed, positive for pansensitive coag-negative staph, group B strep , and light growth of anaerobes. As patient is markedly improving on Ancef, will continue that medication for now. Blood cultures [address] Bautista-does not feel he needs to due further debridement. Will restart Metformin as not anticipating surgery. Consult with ID for antimicrobial recommendations- likely need extended course of IV antibiotics and PICC line. Dr Mann to see patient tomorrow. Patient is afebrile. Normotensive on current medications. Restart Lipitor - liver enzymes normal. No further loose stools reported. C.Diff cancelled.
[2018-03-27] MEDS: INSULIN GLARGINE 100unit/ml INJECTION SQ SCH (09:24)
--- NOTE | 2018-03-27 09:27 | Infectious Disease Consult ---
Infectious Disease Consult Date of Consultation: 03/27/18 Requesting Physician: Phil Ge Reason for Consultation: antibiotic recs History of Present Illness: Mr. Ahmadi is a 72 y/o diabetic man with a history of a wound involving the plantar aspect of the right foot near the first metatarsal head. He reports that he has a history of accident in about 1971 where a very heavy object fell on his leg and crushed his foot. He had to have several surgical procedures for that. He also reports to me that in 2010 he had a large wound there and Dr. Bautista admitted him to the hospital and he states that he had a "fungal infection" of that foot. I reviewed the old records, and he was seen by Dr. Payne , Infectious Disease, on 09/11/2011. Records indicate that his wound culture at that time grew oxacillin sensitive staph aureus. He had surgical debridement done by Dr. Bautista but there was no amputation done because at that time clinically it was felt that he did not have osteomyelitis. Was treated with Zosyn and it looks like he was transferred to an [facility] hospital in [place]. Looks like he had multiple surgical procedures including skin grafting in 2011. The exact duration of his antibiotic therapy is unclear. There is a note in the record from 01/11/2013 that states that his ulcer was declared healed but he did have a callus there. More recently he states that this callus opened up in early November of this year. He was seen in the wound clinic several times for this. On March 11 he had a wound culture obtained that grew oxacillin susceptible staph aureus group B strep and light growth of anaerobic gram-negative rg. He was placed on doxycycline. Unfortunately he developed cellulitis involving the right lower extremity which led to his hospitalization here on 03/23/2018. Also he had been having some diarrhea on admission. He was placed on Ancef on admission. The cultures from March 23 are no growth after 3 days. He has been afebrile. His white blood cell count on admission was 20,000. He had a Doppler of the right lower extremity that was negative for DVT. He had an MRI of the right foot with and without contrast on March 25 that showed chronic skin ulcer underlying the first metatarsophalangeal joint with possible osteomyelitis involving the sesamoid bones of the great toe. Records indicate that this wound totally probed to bone. Dr. Bautista has been following and per records does not feel that any surgical debridement is needed at this point. I've been asked to help with his antibiotics. Medications Home Medications Medication Instructions Recorded Confirmed Type Lysine [l-Lysine] 500 mg PO HS #0 tab 01/05/15 03/23/18 History Advil PM (Ibuprofen 200 2 tab PO PRN PRN tab 04/17/17 03/23/18 History mg-diphenhydramine [id number] mg tablet) multivitamin tablet 1 cap PO QAM 04/17/17 03/23/18 History easy touch pen needle See Label Instructions .ROUTE 02/03/18 03/23/18 Rx .COMPLEX #100 each Prilosec (Omeprazole) 20 mg 20 mg PO BID #60 cap 02/12/18 03/23/18 Rx capsule,delayed release polyethylene glycol 3350 17 1 dose PO DAILY 03/03/18 03/23/18 History gram/dose oral powder Foramet (metformin ER) 500 mg 1,000 mg PO BID 03/20/18 03/23/18 History tablet, 24hr Lantus Solostar (insulin glargine) 75 unit SQ BID #45 ml 03/20/18 03/23/18 Rx 100 unit/mL (3 mL) PEN Novolog FlexPen (insulin aspart) 15 unit SQ TIDWM ml 03/20/18 03/23/18 History 100 unit/mL PEN solifenacin 5 mg tablet 5 mg PO HS #90 tab 03/20/18 03/23/18 Rx wheat dextrin 3 gram/3.8 gram oral See Label Instructions PO BID 03/20/18 History powder whey protein isolate 6 gram-25 See Label Instructions PO DAILY g 03/20/1803/23 History kcal/7 gram oral powder Atorvastatin [Lipitor] 40 mg PO HS 03/23/18 03/23/18 History Blood Sugar Diagnostic [Contour 0 strip .ROUTE .MEDSUPPLY 03/23/18 03/23/18 History Test Strip] Calcium 250 + D [Os Reggie + D] 2 tab PO BID 03/23/18 03/23/18 History Dutasteride 0.5 mg PO HS 03/23/18 03/23/18 History Famotidine [Pepcid] 1 tab PO WS PRN 03/23/18 03/23/18 History Lisinopril/Hctz [Prinzide 1 tab PO DAILY 03/23/18 03/23/18 History ] Sennosides [Ex-Lax] 15 mg PO HS PRN 03/23/18 03/23/18 History doxycycline hyclate 100 mg tablet 100 mg PO BID 03/23/18 03/23/18 History Allergies Allergy/AdvReac Type Severity Reaction Status Date / Time No Known Drug Allergies AdvReac Unknown Verified 03/23/18 13:27 PFS Patient Stated Medical History Hypertension Yes Sleep Apnea No Diabetes Mellitus Type 2 Yes Gastroesophageal Reflux Yes Disease Other GI Yes: CONSTIPATION, diabeticulcer Hx Benign Prostatic Yes Hyperplasia Other Infectious Yes: chicken pox and measles as child Clinic Medical History (Last Reviewed 03/23/18 @ 11:05 by SOLANGE Ryan) BPH associated with nocturia (Chronic Medical) Onychomycosis of multiple toenails with type 2 diabetes mellitus and peripheral neuropathy (Chronic Medical) Hypertension (Chronic Medical) Type 2 diabetes mellitus (Chronic Medical) Obesity (Chronic Medical) Hypercholesteremia (Chronic Medical) Adenomatous polyps (Chronic Medical) Sarcoidosis of lungs (Chronic Medical) Surgical History: R knee arthroscopy 2005. R knee replacement 2007. Colonoscopy tubulovillous adenoma 3 01/05/2015. Colonoscopy adenomatous polyps 11/06/2017 Dr. Tirado. Colonoscopy adenomatous polyps 4 11/08/2010 Dr. Tirado. Right foot surgical debridement 09/13/2011 Dr. Bautista. Delayed primary closure right foot wound 10/18/2011. Full thickness skin graft right foot 12/26/2011. Mediastinal endoscopy 07/30/2010 sarcoidosis Family History: Family History (Last Reviewed 03/23/18 @ 11:05 by SOLANGE Ryan) Father , Pancreatic cancer Pancreatic cancer Heart attack Diabetes Mother , 88 Hypercholesteremia Metastatic squamous cell carcinoma - Social History Smoking status: Never smoker second hand exposure: No Alcohol intake frequency: does not drink Household members: spouse Current occupational status: retired Does patient use chewing tobacco?: No Current residence: Apartment/Private Home Review of Systems All systems PM: 10-point ROS was reviewed, no additional remarkable complaints except - Constitutional Constitutional: Absent: fever(s), headache(s) - Cardiovascular Cardiovascular: Absent: chest pain - Respiratory Respiratory: Absent: dyspnea - Gastrointestinal Gastrointestinal: Present: diarrhea (now resolved). Absent: nausea, vomiting - Genitourinary Genitourinary: Absent: dysuria - Musculoskeletal Musculoskeletal: Absent: arthralgias - Integumentary/Breasts Integumentary: Present: other (redness RLE). Absent: rash - Neurological Neurological: Absent: headache(s) Exam Vital Signs: Temperature 98.4 F 03/27/18 07:25 Pulse Rate 71 03/27/18 07:25 Respiratory Rate 18 03/27/18 07:25 Blood Pressure 165/88 H 03/27/18 07:25 Pulse Oximetry 93 03/27/18 07:25 Height/Weight/BMI: Height 1.73 m Weight 145.6 kg Body Mass Index 49.2 - Constitutional Present: no acute distress, well nourished, well developed, obese - Routine HEENT Exam Head: Present: normocephalic, atraumatic Eye: Present: EOMI, PERRL ENT: Present: mucous membranes moist, oropharynx clear - Routine Neck Exam Present: supple - Routine Respiratory Exam Present: CTA bilaterally - Routine Cardiovascular Exam Present: RRR - Routine Abdominal Exam Present: soft, normoactive bowel sounds, non tender - Routine Extremities Exam Present: edema (1+ RLE). Absent: cyanosis, clubbing - Routine Skin Exam Absent: rash Comments: mild erythema noted involving most of RLE, sparing the foot. The borders are indistinct and seem to be regressing. Nontender. He has a wound on the plantar aspect of the R 1st MT head that appears clean, with some surrounding callous. Moderate drainage. - Routine Neurological Exam Present: alert, oriented X3, CN II-XII intact, normal speech. Absent: motor deficit - Routine Psychiatric Exam Present: normal affect, normal thought process Results - Labs CBC & Chem 7: 03/27/18 04:33 03/26/18 04:09 Microbiology Results: Microbiology 03/23/18 14:41 Peripheral/Iv Start Blood Culture - Preliminary No Growth After 3 Days 03/23/18 14:45 Peripheral/Iv Start Blood Culture - Preliminary No Growth After 3 Days Wound culture 5/3 rare GPC in pairs, rare GNRs on gram stain, cx with mod growth MSSA, light growth GBS, light growth anaerobic GNR Impression: Sepsis secondary to skin/musculoskeletal source RLE cellulitis Chronic osteomyelitis involving the R 1st MT head, wound cultures with MSSA and Group B Strep Leukocytosis DM II, IR, with periphral neuropathy H/o sarcoidosis Morbid obesity with BMI 48.6 S/p R TKA Hypercholesterolemia Recommendation: I suspect that with his prolonged history of problems in the same location on this right foot that he has chronic osteomyelitis there. His wound cultures are still growing the same type of staph aureus. I would recommend placing a PICC line and treating him with IV antibiotics for 6 weeks. I defer any surgical decisions to Dr. Bautista, however I think he is at risk for an amputation at some point. I would recommend using daptomycin 800 mg IV daily which he could receive through the infusion center daily as an outpatient. I discussed with him that I would recommend holding his statin while on the daptomycin. He will need weekly PICC cares, weekly CBC with differential, BMP, CRP, CPK. Discharge home at your discretion. I will see him in follow-up in the wound clinic.
--- NOTE | 2018-03-27 11:00 | Progress Note ---
- Date 03/27/18 Subjective: Pt seen this morning in follow-up of cellulitis and diabetic foot wound. He reports he is feeling well. He has no chest pain, shortness of breath, nausea or vomiting. He states he feels a "warmth" in his lower right leg which is new to him as he typically has no feeling secondary to his neuropathy. Objective Vital signs: Temperature 98.4 F 03/27/18 07:25 Pulse Rate 71 03/27/18 07:25 Respiratory Rate 18 03/27/18 07:25 Blood Pressure 165/88 H 03/27/18 07:25 Pulse Oximetry 93 03/27/18 07:25 Height/Weight/BMI: Height 1.73 m Weight 145.6 kg Body Mass Index 49.2 - Constitutional Present: no acute distress, well nourished, well developed - Routine HEENT Exam Head: Present: normocephalic, atraumatic - Routine Respiratory Exam Present: CTA bilaterally. Absent: wheezes - Routine Cardiovascular Exam Present: RRR, no murmur - Routine Abdominal Exam Present: soft, tenderness (mild diffuse), non distended - Routine Extremities Exam Present: normal capillary refill Comments: Still has mild erythema to the distal lower leg with no tenderness to palpation. He has 1+ pitting edema of the foot and lower leg. Overall significantly improved from admission. Wound on plantar surface is currently covered with wound care dressing. - Routine Skin Exam Present: dry, warm - Routine Neurological Exam Present: alert, oriented X3 - Routine Lymphatic Exam Lymphatic: Absent: adenopathy - Routine Psychiatric Exam Present: normal affect, cooperative Results - Labs CBC & Chem 7: 03/27/18 04:33 03/26/18 04:09 Microbiology Results: Microbiology 03/23/18 14:41 Peripheral/Iv Start Blood Culture - Preliminary No Growth After 3 Days 03/23/18 14:45 Peripheral/Iv Start Blood Culture - Preliminary No Growth After 3 Days Assessment and Plan (1) Cellulitis and abscess of right lower extremity Current visit: Yes Status: Acute (2) Diabetic foot ulcer Problem details: Right 1st MT head Current visit: Yes Status: Acute Assessment and Plan: Assessment RLE cellulitis - failed OP tx with doxy Diabetic foot ulcer, right first metatarsal Velasco grade 2 right diabetic foot ulcer with associated cellulitis - failed outpatient therapy Possible osteomyelitis involving the sesamoid bones of the great toe per MRI Acute diarrhea -resolved on day of admission Leukocytosis (POA)-improving S/p skin bx on face (Dr Miller) - sutures to be removed 03/26/18 BPH associated with nocturia Hypertension Type 2 diabetes mellitus - A1C 10.1 (02/27) Peripheral neuropathy Hypercholesteremia Adenomatous polyps Sarcoidosis Morbid obesity with BMI 48.[address] Mann recommends daptomycin 800 mg IV daily for 6 weeks for osteomyelitis. PICC line will be placed today. He'll need PICC cares, CBC with differential, BMP, CRP and CPK weekly. Follow-up with Dr. Mann in wound clinic. Will continue to follow with Dr. Britt through the wound clinic for debridement of ulceration as needed. Cultures reviewed, positive for pansensitive coag-negative staph, group B strep , and light growth of anaerobes. Diabetes is currently well controlled. Hope to DC home today. - Physician Narrative Physician: Phil Ge MD Narrative: Date: 03/27/18 Time: 1524 Have independently interviewed & examined pt. Chart reviewed. Case discussed with CM & my PA. Care plan developed with my supervision; agree with above. Doing well this afternoon. No f/c. Breathing well. Pain controlled. Lungs: decreased, no distress CV: regular AB: soft nt/nd MSE: awake alert appropriate Plan: Dr Mann has change antibiotic to Daptomycin once a day. PICC line placed. Medically stable for discharge to home. See orders for details. Hospital Course Summary Disclaimer: The visit summary below is not to be considered part of the above Progress Note. Hospital Course: 03/23/18 Admit, IP. Stay likely to exceed 2 overnights to treat infection and given his comorbidities. Start Ancef 1gm q 6 hrs IV for cellulitis. BC x 2 prior to atbx. CRP, lactate and CMP. Repeat CBC and BMP in am to follow blood counts and renal function. Venous Doppler neg for DVT. Consult Dr. Bautista for diabetic foot ulceration. Sutures on face to be removed 03/26 if pt is still hospitalized. Check stool for c diff. If neg, will check full GI panel. Accuchecks. Adjust insulin as needed. Lovenox for DVT PPx. DNR. Care to return to [facility] on dismissal. 03/24/18 Patient significantly improved. Cellulitis improving with Ancef. WBC improving 20.5-->14.8. Dr. Bautista feels the wound tunnels to the bone. Has scheduled MRI of the foot to rule out osteomyelitis for tomorrow. C diff testing not performed as pt has not had any further liquid stools. 03/25/18 Leukocytosis continues to improve - 20.5-->14.8-->11.5. Vitals are stable. Patient has MRI of the right foot to rule out osteomyelitis scheduled for a later this morning per Dr. Bautista Day #3 of Ancef. Sugars reviewed and are stable. Continue current insulin regimen. 03/26/18 Ancef day #4. Cultures reviewed, positive for pansensitive coag-negative staph, group B strep , and light growth of anaerobes. As patient is markedly improving on Ancef, will continue that medication for now. Blood cultures [address] remain [address] with Dr Bautista-does not feel he needs to due further debridement. Will restart Metformin as not anticipating surgery. Consult with ID for antimicrobial recommendations- likely need extended course of IV antibiotics and PICC line. Dr Mann to see patient tomorrow. Patient is afebrile. Normotensive on current medications. Restart Lipitor - liver enzymes normal. No further loose stools reported. C.Diff cancelled. 03/27/18 Dr. Mann recommends daptomycin 800 mg IV daily for 6 weeks for osteomyelitis. PICC line will be placed today. He'll need PICC cares, CBC with differential, BMP, CRP and CPK weekly. Follow-up with Dr. Mann in wound clinic. Will continue to follow with Dr. Britt through the wound clinic for debridement of ulceration as needed. Cultures reviewed, positive for pansensitive coag-negative staph, group B strep , and light growth of anaerobes. Diabetes is currently well controlled. Hope to DC home today.
[2018-03-27] MEDS ORDERED: DAPTOmycin 800 MG in NS 50 ML IVP SCH (12:00)
--- NOTE | 2018-03-27 13:47 | Discharge Summary ---
Discharge Information Date of admission: 03/23/18 12:55 Anticipated date of discharge: 03/27/18 Attending Physician: Phil Ge MD Primary care physician: Mary Ellen Nieves APRN Consults: Consulting Provider: Gonzalez Bautista Reason For Exam: infected diabetic foot ulcer Consulting Provider: Beth Mann Reason For Exam: Poss osteo of Diabetic foot wound Recommendations: I would recommend placing a PICC line and treating him with IV antibiotics for 6 weeks. I defer any surgical decisions to Dr. Bautista, however I think he is at risk for an amputation at some point. I would recommend using daptomycin 800 mg IV daily which he could receive through the infusion center daily as an outpatient. I discussed with him that I would recommend holding his statin while on the daptomycin. He will need weekly PICC cares, weekly CBC with differential, BMP, CRP, CPK. - Discharge Diagnosis (1) Cellulitis and abscess of right lower extremity Status: Acute (2) Diabetic foot ulcer Status: Acute Discharge diagnosis RLE cellulitis - failed OP tx with doxy Diabetic foot ulcer, right first metatarsal Velasco grade 3 right diabetic foot ulcer with associated cellulitis - failed outpatient therapy Possible osteomyelitis involving the sesamoid bones of the great toe per MRI Associated conditions and complications Acute diarrhea -resolved on day of admission Leukocytosis (POA)-improving S/p skin bx on face (Dr Miller) - sutures removed 03/26/18 BPH associated with nocturia Hypertension Type 2 diabetes mellitus - A1C 10.1 (02/27) Peripheral neuropathy Hypercholesteremia Adenomatous polyps Sarcoidosis GERD Morbid obesity with BMI 48.6 - Laboratory Labs: Dismissal labs 03/27/18 04:33 WBC 11.7 H RBC 5.33 Hgb 14.7 Hct 45.3 Plt Count 243 Admission Labs 03/24/18 04:17 WBC 14.8 H RBC 4.91 Hgb 13.9 Hct 41.9 Plt Count 190 03/23/18 14:45 Sodium 142 Potassium 4.3 Chloride 104 Carbon Dioxide 24 Anion Gap 14 BUN 30.0 H Creatinine 1.0 GFR Calculation 74 Glucose 114 H Calculated Osmolality 280 Calcium 9.8 Magnesium 1.8 Total Bilirubin 1.10 AST 32 ALT 54 H Alkaline Phosphatase 50 C-Reactive Protein 86.4 H Total Protein 7.2 Albumin 4.1 Globulin 3.1 Plasma Lactate 1.5 - Microbiology Microbiology 03/23/18 14:41 Peripheral/Iv Start Blood Culture - Preliminary No Growth After 3 Days 03/23/18 14:45 Peripheral/Iv Start Blood Culture - Preliminary No Growth After 3 Days - Radiology Radiology: Date of Exam: 03/23/18 EXAM: US venous doppler LE RT HISTORY: RLE swelling FINDINGS: The right common femoral, femoral, deep femoral, popliteal, posterior tibial, and peroneal veins are widely patent without filling defects. These vessels demonstrate normal response to augmentation and compression. There are no abnormal fluid collections within the surrounding soft tissues. IMPRESSION: No evidence for right lower extremity deep venous thrombosis. = = = = = = = = = = = = = = = = = = = = = = = = = = = = = = = = = = = = = = = = = = = = = = = = = = = = = = = = = = = Date of Exam: 03/25/18 Indication: diabetic foot ulcer, rule out osteomyelitis Right foot PROCEDURE: MR foot RT wo/w con: Findings: Chronic ulcer underlying the first metatarsophalangeal joint. Interval displacement of the sesamoid bones compared to the prior study which are now splayed out to each side. The sesamoid bones demonstrate decreased T1 signal intensity compared to the prior study without focal bone marrow edema on the fluid sensitive sequences. There is interval worsening in degenerative change in the first metatarsophalangeal joint with new osteophytes on the first metatarsal head. There is however no evidence of focal bone marrow edema or enhancement in the first metatarsal head to confirm infection. There is enhancement of the plantar subcutaneous tissues in this area with a small rim- enhancing phlegmon on axial image #17 measuring 2.3 x 0.5 cm in diameter. No drainable abscess. Chronic bony abnormalities with cortical thickening in the first and second metatarsal shafts. The remaining bone marrow signal intensity is grossly normal. The Lisfranc ligament is intact. Mild to moderate degenerative change in the midfoot. Muscular signal intensity is normal. Osseous fusion of the great toe interphalangeal joint. Impression: Chronic skin ulcer underlying the first metatarsophalangeal joint with possible osteomyelitis involving the sesamoid bones of the great toe. History of Present Illness HPI: Patient is a 72-year-old male who is a direct admit from Mary Ellen Nieves APRN due to cellulitis of the right lower extremity not responding to antibiotics. Patient reports he's been on doxycycline for approximately the last 2 weeks through the wound care clinic. He had a positive wound culture from the right foot revealing staph aureus and strep agalactiae sensitive to all antibiotics tested. He went to see his PCP today because of diarrhea and fever. States that the diarrhea started yesterday morning. He had too many stools to counts. Today he's had at least 4 liquid stools. No blood noted. He reportedly had a fever yesterday of 101 with chills. No fever this morning but does not feel well. He has also developed some pain in the back of his neck. Lab from his PCPs office revealed a white count of 19.7. Patient is diabetic with recent A1c of 10.1. He has recently had a change to his diabetic medication regimen and reports blood sugars have been in the 200s. Had removal of precancerous skin lesion on face by Dr Miller. Sutures to be removed 03/26 per pt. For complete details of the H&P refer to that document. Objective Vital signs: See progress note for exam. Height/Weight/BMI: Height 1.73 m Weight 145.6 kg Body Mass Index 49.2 Hospital Course This is a general summary of the patient's hospital course. For more details refer to the complete medical record. Hospital course: 03/23/18 Admit, IP. Stay likely to exceed 2 overnights to treat infection and given his comorbidities. Start Ancef 1gm q 6 hrs IV for cellulitis. BC x 2 prior to atbx. CRP, lactate and CMP. Repeat CBC and BMP in am to follow blood counts and renal function. Venous Doppler neg for DVT. Consult Dr. Bautista for diabetic foot ulceration. Sutures on face to be removed 03/26 if pt is still hospitalized. Check stool for c diff. If neg, will check full GI panel. Accuchecks. Adjust insulin as needed. Lovenox for DVT PPx. DNR. Care to return to Mary Ellen Nieves APRN on dismissal. 03/24/18 Patient significantly improved. Cellulitis improving with Ancef. WBC improving 20.5-->14.8. Dr. Bautista feels the wound tunnels to the bone. Has scheduled MRI of the foot to rule out osteomyelitis for tomorrow. C diff testing not performed as pt has not had any further liquid stools. 03/25/18 Leukocytosis continues to improve - 20.5-->14.8-->11.5. Vitals are stable. Patient has MRI of the right foot to rule out osteomyelitis scheduled for a later this morning per Dr. Bautista Day #3 of Ancef. Sugars reviewed and are stable. Continue current insulin regimen. 03/26/18 Ancef day #4. Cultures reviewed, positive for pansensitive coag-negative staph, group B strep , and light growth of anaerobes. As patient is markedly improving on Ancef, will continue that medication for now. Blood cultures [address] Bautista-does not feel he needs to due further debridement. Will restart Metformin as not anticipating surgery. Consult with ID for antimicrobial recommendations- likely need extended course of IV antibiotics and PICC line. Dr Mann to see patient tomorrow. Patient is afebrile. Normotensive on current medications. Restart Lipitor - liver enzymes normal. No further loose stools reported. C.Diff cancelled. 03/27/18 Diabetes is currently well controlled. Sutures on face removed today (from recent bx with Dr. Miller) Dr. Mann recommends daptomycin 800 mg IV daily for 6 weeks for osteomyelitis - to be done in Infusion Center at [facility]. PICC line placed today. Hold statin while on daptomycin. He'll need PICC cares, CBC with differential, BMP, CRP and CPK weekly. F/U with PCP in 1 week for medical evaluation. Follow-up with Dr. Mann in wound clinic. Will continue to follow with Dr. Britt through the wound clinic for debridement of ulceration as needed. DC home today. See orders for details. Time spent with patient: discharge greater than 30 minutes Resuscitation Status: Do Not Resuscitate Discharge Plan - Discharge Disposition Discharge Date: 03/27/18 Disposition: 01 Discharged Home, Self-Care *Condition: Stable Reason For Visit (Visit label in EMR): diabetic foot ulcer - Discharge Medications *Discharge Medications: New DAPTOmycin [Cubicin] 800 mg IVP Q24H vial Continue Sennosides [Ex-Lax] 15 mg PO HS PRN PRN Reason: Constipation Famotidine [Pepcid] 1 tab PO WS PRN PRN Reason: Heartburn Calcium 250 + D [Os Reggie + D] 2 tab PO BID Dutasteride 0.5 mg PO HS Lisinopril/Hctz 20/25 [Prinzide 20/25] 1 tab PO DAILY Lysine [l-Lysine] 500 mg PO HS #0 tab multivitamin tablet 1 cap PO QAM Advil PM (Ibuprofen 200 mg-diphenhydramine [id number] mg tablet) 2 tab PO PRN PRN tab PRN Reason: Pain polyethylene glycol 3350 17 gram/dose oral powder 1 dose PO DAILY Lantus Solostar (insulin glargine) 100 unit/mL (3 mL) PEN 75 unit SQ BID #45 ml Novolog FlexPen (insulin aspart) 100 unit/mL PEN 15 unit SQ TIDWM ml solifenacin 5 mg tablet 5 mg PO HS #90 tab Foramet (metformin ER) 500 mg tablet, 24hr 1,000 mg PO BID Prilosec (Omeprazole) 20 mg capsule,delayed release 20 mg PO BID #60 cap wheat dextrin 3 gram/3.8 gram oral powder See Label Instructions PO BID Discontinued Atorvastatin [Lipitor] 40 mg PO HS doxycycline hyclate 100 mg tablet 100 mg PO BID No Action Blood Sugar Diagnostic [Contour Test Strip] 0 strip .ROUTE .MEDSUPPLY easy touch pen needle See Label Instructions .ROUTE .COMPLEX #100 each whey protein isolate 6 gram-25 kcal/7 gram oral powder See Label Instructions PO DAILY g - Discharge Packet/Instructions *Diet: diabetic, low carbohydrate diet *Activity: As tolerated *Pain Management/Treatment: n/a *Wound Care: per wound clinic Additional Instructions: Hold your cholesterol medicine (atorvastatin/Lipitor) until you finish your 6 weeks of Daptomycin infusions. Continue diabetic medications as ordered and take blood sugar record with you to follow-up appointment with Mary Ellen. *Notify Physician if: You develop fever or increasing redness/swelling in your leg. *During Business Hours Contact: [facility] *After Business Hours Contact: [facility] and follow after hours instructions *Pending Lab/Results: No Pending Lab - Referrals/Follow Up *Referrals/Follow Up: Mary Ellen Nieves, [employer] [Primary Care Provider] - 04/03/18 9:15 am Beth Mann MD [Physician] - 04/08/18 9:30 am ([facility]) Lyn Britt MD [Physician] - 04/06/18 1:30 pm (Sched with Dr. Britt at [facility] for ongoing wound care.) - Patient Handouts - Dismissal Complete Discharge Instructions are:: Complete Physician Narrative - Narrative Physician: Phil Ge MD Attestation Narrative: Date: 03/27/18 Time: 1530 I have independently interviewed and examined patient prior to discharge. See my progress note for details. Medically stable for discharge to home.
[2018-03-27 15:15] VITALS: BP 159/105; PULSE 82; RESP 16; TEMP 97.2; O2SAT 97
== END 2018-03-27 15:52 | disposition home or self-care (01) | DRG 603 ==
LOC: SUATTDRO 12:55 → SRG 12:55
PROVIDERS: ADMIT Internal Medicine; ATTEND Hospitalist

== ENCOUNTER 2018-04-20 14:52 | Inpatient (IN) ==
[2018-04-20] MEDS ORDERED: NS 1,000 ML IV ONE ×2 (16:27→18:16)
[2018-04-20] MEDS: SALINE FLUSH 10ml SYRINGE IVF PRN ×2 (16:40→21:41)
--- NOTE | 2018-04-20 17:17 | XRay Report ---
EXAM: XR chest 2V HISTORY: fever COMPARISON: Prior examination dated 09/16/2011. FINDINGS: The lung barba are hypoventilated. There is linear atelectasis versus early infiltrate in the right lung base. No dense focal airspace consolidation is seen. The remaining lung barba are clear. The cardiomediastinal silhouette is normal. The mediastinum is not widened. The trachea is midline. The pulmonary vascularity is not engorged. The costophrenic angles are sharp. The bony thorax shows early degenerative changes. A right-sided PICC line is in place. IMPRESSION: 1. The lung barba are hypoventilated with linear atelectasis versus early infiltrate at the right lung base. 2. Right-sided PICC line in place. .
[2018-04-20] MEDS: LEVOFLOXACIN PB 500 MG/100 ML BAG IV SCH (18:15)
--- NOTE | 2018-04-20 18:26 | Emergency Department Report ---
General Adult HPI - General Chief complaint: Medical Emergency Stated complaint: Dr sent over white count high Source: patient Mode of arrival: ambulatory Limitations: no limitations - History of Present Illness HPI narrative: PT presents after he was called by wound care and notified that his white count was twice what it was last week. PT is currently receiving IV antibiotics for a diabetic foot ulcer on his right foot. He has labs drawn once a week and labs this week were much worse than the last. Pt reports he has had a questionable fever the last few days with headache and joint pain. He has had some diarrhea but that has been ongoing for about 2 weeks and probably related to antibiotic. Pt denies cough, chest pain, nausea, vomiting, SOA, or congestion. - Related Data Home Medications Medication Instructions Recorded Confirmed Lysine [l-Lysine] 500 mg PO HS #0 tab 01/05/15 04/20/18 Advil PM (Ibuprofen 200 2 tab PO PRN PRN tab 04/17/17 04/20/18 mg-diphenhydramine [id number] mg tablet) Calcium 250 + D [Os Reggie + D] 2 tab PO BID 03/23/18 04/20/18 Lisinopril/Hctz 20/25 [Prinzide 1 tab PO DAILY 03/23/18 04/20/18 20/25] Lipitor (atorvastatin) 40 mg tablet 40 mg PO HS 04/09/18 04/20/18 aspirin 81 mg chewable tablet 81 mg PO DAILY 04/09/18 04/20/18 dutasteride 0.5 mg capsule 0.5 mg PO HS 04/09/18 04/20/18 Ascorbic Acid [Vitamin C] 1,000 mg PO DAILY 04/20/18 04/20/18 Famotidine/Ca Carb/Mag Hydrox 1 tab PO WS 04/20/18 04/20/18 [Pepcid Complete Tablet Chew] Famotidine/Ca Carb/Mag Hydrox 2 tab PO HS 04/20/18 04/20/18 [Pepcid Complete Tablet Chew] Insulin Aspart [Novolog Flexpen] 15 unit SQ TIDWM 04/20/18 04/20/18 Insulin Glargine,Hum.rec.anlog 75 unit SQ BID 04/20/18 04/20/18 [Basaglar Kwikpen U-100] Metformin [Glucophage] 1,000 mg PO BIDWM 04/20/18 04/20/18 Multivitamin [One Daily] 1 each PO HS 04/20/18 04/20/18 Sennosides/Docusate Sodium 1 each PO WB 04/20/18 04/20/18 [Senokot-S Tablet] Solifenacin Succinate [Vesicare] 5 mg PO HS 04/20/18 04/20/18 Previous Rx's Medication Instructions Recorded Prilosec (Omeprazole) 20 mg 20 mg PO BID #60 cap 02/12/18 capsule,delayed release Allergies Allergy/AdvReac Type Severity Reaction Status Date / Time No Known Drug Allergies AdvReac Unknown Verified 04/20/18 17:04 Review of Systems All systems: reviewed and negative except as stated Constitutional: Reports: as per HPI Cardiovascular: Reports: as per HPI Respiratory: Reports: as per HPI Gastrointestinal: Reports: as per HPI Musculoskeletal: Reports: as per HPI Neurological: Reports: as per HPI [facility] Patient Stated Medical History Hypertension Yes Sleep Apnea No Diabetes Mellitus Type 2 Yes Gastroesophageal Reflux Yes Disease Other GI Yes: CONSTIPATION, diadeticulcer Hx Benign Prostatic Yes Hyperplasia Hx Renal Disease No Other Infectious Yes: chicken pox and measles as child Clinic Medical History (Last Reviewed 03/31/18 @ 08:42 by SOLANGE Ryan) BPH associated with nocturia (Chronic Medical) Onychomycosis of multiple toenails with type 2 diabetes mellitus and peripheral neuropathy (Chronic Medical) Hypertension (Chronic Medical) Type 2 diabetes mellitus (Chronic Medical) Obesity (Chronic Medical) Hypercholesteremia (Chronic Medical) Adenomatous polyps (Chronic Medical) Sarcoidosis (Chronic Medical) Surgical History: R knee arthroscopy 2005. R knee replacement 2007. Colonoscopy tubulovillous adenoma 3 01/05/2015. Colonoscopy adenomatous polyps 11/06/2017 Dr. Tirado. Colonoscopy adenomatous polyps 4 11/08/2010 Dr. Tirado. Right foot surgical debridement 09/13/2011 Dr. Bautista. Delayed primary closure right foot wound 10/18/2011. Full thickness skin graft right foot 12/26/2011. Mediastinal endoscopy 07/30/2010 sarcoidosis Family History: Family History (Last Reviewed 03/31/18 @ 08:42 by SOLANGE Ryan) Father , Pancreatic cancer Pancreatic cancer Heart attack Diabetes Mother , 88 Hypercholesteremia Metastatic squamous cell carcinoma - Social History Smoking status: Never smoker second hand exposure: No Alcohol intake frequency: does not drink Household members: spouse Current occupational status: retired Does patient use chewing tobacco?: No Current residence: Apartment/Private Home Physical Exam - Limitations Limitations: no limitations - General General appearance: alert, in no apparent distress - Normal Exams: Head:: Normocephalic without trauma Eyes:: Pupils are PERRLA w/ EOMI Chest/Respirations:: Clear all barba, with good airflow, and symmetry bilaterally Cardiovascular:: Regular rate and rhythm, without murmur or gallop, Pulses 2+ all extremities (boot to RLE), capillary refill, <2 seconds all extremities Abdomen:: Bowel sounds positive, soft, non-tender, non-distended Musculoskeletal:: No tenderness, or deformity noted, good range of motion, all extremities Integumentary:: No rashes (ulcer to right foot reviewed per photo only 2/2 dressing and placed boot) Neurological:: Patient is alert, and oriented, cranial nerves, motor/sensory/ cerebellar, exams w/o gross deficits, to observation Psychiatric:: Patient exhibits, appropriate attention, emotion and affect Course Vital Signs Temperature 98.6 F 04/20/18 15:00 Pulse Rate 97 04/20/18 15:00 Respiratory Rate 22 04/20/18 15:00 Blood Pressure 146/65 H 04/20/18 15:00 Pulse Oximetry 93 04/20/18 15:00 Temperature 100.1 F 04/20/18 16:27 Pulse Rate 89 04/20/18 17:07 Respiratory Rate 22 04/20/18 16:27 Blood Pressure 123/61 04/20/18 17:07 Pulse Oximetry 94 04/20/18 17:07 Medical Decision Making - MDM Narrative Medical decision making narrative: Labs and X ray reviewed. Cultures obtained from both PICC line and peripherally. Pt started on Levaquin. Hospitalist notified and will admit. - Lab Data Lab results reviewed: Yes: I reviewed the patient's lab results. Result diagrams: 04/20/18 16:41 04/20/18 16:41 Lab Results 04/20/18 04/20/18 04/20/18 Range/Units 16:41 16:41 16:46 WBC 25.0 H (4.5-11.0) T/MM3 RBC 4.84 (4.50-5.90) M/MM3 Hgb 13.6 (13.5-17.5) GM/DL Hct 40.6 L (41-53) % MCV 83.9 (80-100) UM3 MCH 28.1 (26-34) UUG MCHC 33.5 (31-37) GM/DL RDW Std Deviation 48.8 (36.9-50.2) FL Plt Count 205 (130-400) T/MM3 MPV 11.4 (9.4-12.4) UM3 Immature Gran % (Auto) Not performed Neut % (Auto) Not performed Lymph % (Auto) Not performed Mckinley % (Auto) Not performed Eos % (Auto) Not performed Baso % (Auto) Not performed Neut # (Auto) Not performed Lymph # (Auto) Not performed Mckinley # (Auto) Not performed Eos # (Auto) Not performed Baso # (Auto) Not performed Abs Immat Gran (auto) Not performed Neutrophils % (Manual) 82.0 H (33-66) % Lymphocytes % (Manual) 9.0 L (23-45) % Monocytes % (Manual) 7.0 (0-9.0) % Eosinophils % (Manual) 2.0 (0-4) % Neutrophils # (Manual) 20.5 H (1.8-7.7) T/MM3 Lymphocytes # (Manual) 2.3 (1-4.8) T/MM3 Monocytes # (Manual) 1.8 H (0-0.8) T/MM3 Eosinophils # (Manual) 0.5 (0-0.5) T/MM3 RBC Morph Comment Normal Turbidity < 20 (0-20) Sodium 141 (136-146) MEQ/L Potassium 4.1 (3.6-5) MEQ/L Chloride 103 (98-107) MEQ/L Carbon Dioxide 25 (22-30) MEQ/L Anion Gap 13 (5-15) meq/L BUN 18.0 (9-20) MG/DL Creatinine 0.9 (0.8-1.5) mg/dL GFR Calculation 83 BUN/Creatinine Ratio 20 (6-26) RATIO Glucose 211 H (75-110) MG/DL Calculated Osmolality 279 (261-280) MOSM/KG Calcium 9.2 (8.4-10.2) MG/DL Total Bilirubin 1.30 (0.20-1.30) MG/DL Icterus Index < 2 (0-7) AST 27 (17-59) U/L ALT 49 (1-50) U/L Alkaline Phosphatase 71 (38-126) U/L Total Protein 7.4 (6.3-8.2) g/dL Albumin 4.1 (3.5-5.0) g/dL Globulin 3.3 (2.4-3.6) G/DL Albumin/Globulin Ratio 1.2 (1.1-2.2) RATIO Plasma Lactate 2.1 (0.6-2.2) MMOL/L Specimen Hemolysis < 15 (0-25) Ur Collection Type Urine, void-cc/notcc Urine Color Yellow (YELLOW) Urine Clarity Clear Urine pH 6.0 (5.0-8.0) Ur Specific Napoleon 1.025 (1.015-1.025) Urine Protein Trace A (NEGATIVE) Urine Glucose (UA) Trace A (NEGATIVE) Urine Ketones Negative (NEGATIVE) Urine Occult Blood Negative (NEGATIVE) Urine Nitrate Positive A (NEGATIVE) Urine Bilirubin Negative (NEGATIVE) Urine Urobilinogen 1.0 (NORMAL) EU/DL Ur Leukocyte Esterase Negative (NEGATIVE) Urine RBC 0-1 (0-3) /HPF Urine WBC 3-5 (0-5) /HPF Urine Bacteria 4+ H (NEGATIVE) Ur Culture Indicated? Cult reflexed &setup - Radiology Data Radiology results reviewed: Yes: I reviewed the patient's radiology results. Disposition Clinical Impression: UTI (urinary tract infection) Qualifiers: Urinary tract infection type: acute cystitis Hematuria presence: without hematuria Qualified Code(s): N30.00 - Acute cystitis without hematuria [place] [facility] [place] Condition: Improved Prescriptions: No Action Calcium 250 + D [Os Reggie + D] 2 tab PO BID Lisinopril/Hctz 20/25 [Prinzide 20/25] 1 tab PO DAILY Famotidine/Ca Carb/Mag Hydrox [Pepcid Complete Tablet Chew] 2 tab PO HS Famotidine/Ca Carb/Mag Hydrox [Pepcid Complete Tablet Chew] 1 tab PO WS Multivitamin [One Daily] 1 each PO HS Insulin Aspart [Novolog Flexpen] 15 unit SQ TIDWM Ascorbic Acid [Vitamin C] 1,000 mg PO DAILY Metformin [Glucophage] 1,000 mg PO BIDWM Insulin Glargine,Hum.rec.anlog [Basaglar Marisikpen U-100] 75 unit SQ BID Solifenacin Succinate [Vesicare] 5 mg PO HS Lysine [l-Lysine] 500 mg PO HS #0 tab Sennosides/Docusate Sodium [Senokot-S Tablet] 1 each PO WB Advil PM (Ibuprofen 200 mg-diphenhydramine [id number] mg tablet) 2 tab PO PRN PRN tab PRN Reason: Pain Lipitor (atorvastatin) 40 mg tablet 40 mg PO HS aspirin 81 mg chewable tablet 81 mg PO DAILY dutasteride 0.5 mg capsule 0.5 mg PO HS Prilosec (Omeprazole) 20 mg capsule,delayed release 20 mg PO BID #60 cap Referrals: Mary Ellen Nieves APRN [Primary Care Provider] - Time of Disposition: 19:44 - Seen By: [email or web address]
--- NOTE | 2018-04-20 20:25 | History & Physical Report ---
History of Present Illness Date: 04/21/18 Chief complaint: Notified of elevated WBC, gen weakness HPI: Mr. Ahmadi is a 72 y/o w/ DM type 2 insulin-requiring w/ diabetic foot ulcer and multiple other medical conditions who is currently undergoing treatment w/ IV Daptomycin (x 3 weeks thus far) for a diabetic foot ulcer who presents to ED on the advice of the wound clinic b/c his labs done today showed a WBC of 25K w/ 82 % neutrophils, which is high compared to the 12K last week. Patient states that he has had a subjective fever the past few days with intermittent MCGEE, some joint aches and pains especially in the knees and some diarrhea, though he has been taking Miralax and another stool softener up until last week. Patient states he really started noticing the symptoms yesterday - fatigue, generalized weakness, malaise, joint aches and the diarrhea seemed more frequent. He did note one episode of dysuria Friday night, but none after that. Pt denies cough, chest pain, nausea, vomiting, SOA, or congestion, denies focal neuro deficit and denies melena and hematochezia. He has noted some generalized weakness and fatigue the past few days In the ER patient had a CXR read as overall hypoventilation and ? atelectasis vs. infiltrate in RLL, a UA showing + nitrates but negative leukocyte esterase and 3-5 WBCs/HPF and 4+ bacteria and a lactate of 2.1. He was given 2L IVFs and started on Levaquin 500mg IV x one dose. Patient had temp of 100.9F in ER. Currently Afebrile and states he is feeling better. Patient to be admitted to the Hospitalist service for further evaluation and managment. Review of Systems All systems PM: 10-point ROS was reviewed, no additional remarkable complaints except Past Medical History Medical History: Medical History (Last Reviewed 03/31/18 @ 08:42 by SOLANGE Ryan) BPH associated with nocturia (Chronic) Onychomycosis of multiple toenails with type 2 diabetes mellitus and peripheral neuropathy (Chronic) Hypertension (Chronic) Type 2 diabetes mellitus (Chronic) Obesity (Chronic) Hypercholesteremia (Chronic) Adenomatous polyps (Chronic) Sarcoidosis (Chronic) Surgical History: R knee arthroscopy 2005. R knee replacement 2007. Colonoscopy tubulovillous adenoma 3 01/05/2015. Colonoscopy adenomatous polyps 11/06/2017 Dr. Tirado. Colonoscopy adenomatous polyps 4 11/08/2010 Dr. Tirado. Right foot surgical debridement 09/13/2011 Dr. Bautista. Delayed primary closure right foot wound 10/18/2011. Full thickness skin graft right foot 12/26/2011. Mediastinal endoscopy 07/30/2010 sarcoidosis Family History: Family History (Last Reviewed 03/31/18 @ 08:42 by Aleena James [facility]) Father , Pancreatic cancer Pancreatic cancer Heart attack Diabetes Mother , 88 Hypercholesteremia Metastatic squamous cell carcinoma Family History: As Above - Social History Smoking status: Never smoker Does patient use chewing tobacco?: No Current residence: Apartment/Private Home Medications Home Medications Medication Instructions Recorded Confirmed Type Lysine [l-Lysine] 500 mg PO HS #0 tab 01/05/15 04/20/18 History Advil PM (Ibuprofen 200 2 tab PO PRN PRN tab 04/17/17 04/20/18 History mg-diphenhydramine mg tablet) Prilosec (Omeprazole) 20 mg 20 mg PO BID #60 cap 02/12/18 04/20/18 Rx capsule,delayed release Calcium 250 + D [Os Reggie + D] 2 tab PO BID 03/23/18 04/20/18 History Lisinopril/Hctz 20/25 [Prinzide 1 tab PO DAILY 03/23/18 04/20/18 History 20/25] Lipitor (atorvastatin) 40 mg tablet 40 mg PO HS 04/09/18 04/20/18 History aspirin 81 mg chewable tablet 81 mg PO DAILY 04/09/18 04/20/18 History dutasteride 0.5 mg capsule 0.5 mg PO HS 04/09/18 04/20/18 History Ascorbic Acid [Vitamin C] 1,000 mg PO DAILY 04/20/18 04/20/18 History Famotidine/Ca Carb/Mag Hydrox 1 tab PO WS 04/20/18 04/20/18 History [Pepcid Complete Tablet Chew] Famotidine/Ca Carb/Mag Hydrox 2 tab PO HS 04/20/18 04/20/18 History [Pepcid Complete Tablet Chew] Insulin Aspart [Novolog Flexpen] 15 unit SQ TIDWM 04/20/18 04/20/18 History Insulin Glargine,Hum.rec.anlog 75 unit SQ BID 04/20/18 04/20/18 History [Basaglar Kwikpen U-100] Metformin [Glucophage] 1,000 mg PO BIDWM 04/20/18 04/20/18 History Multivitamin [One Daily] 1 each PO HS 04/20/18 04/20/18 History Sennosides/Docusate Sodium 1 each PO WB 04/20/18 04/20/18 History [Senokot-S Tablet] Solifenacin Succinate [Vesicare] 5 mg PO HS 04/20/18 04/20/18 History Allergies Allergy/AdvReac Type Severity Reaction Status Date / Time No Known Drug Allergies AdvReac Unknown Verified 04/20/18 17:04 Exam Vital Signs: Temperature 99.1 F 04/20/18 18:56 Pulse Rate 87 04/20/18 19:45 Respiratory Rate 24 04/20/18 19:45 Blood Pressure 126/58 04/20/18 19:31 Pulse Oximetry 94 04/20/18 19:45 Telemetry Rhythm: Sinus Rhythm - Constitutional Present: no acute distress, well nourished, well developed, cooperative - Routine HEENT Exam Head: Present: normocephalic, atraumatic Eye: Present: EOMI, PERRL ENT: Present: mucous membranes dry, nares patent - Routine Neck Exam Present: supple, full ROM. Absent: JVD - Routine Respiratory Exam Present: CTA bilaterally. Absent: accessory muscle use, dyspnea, rales, respiratory distress, rhonchi, wheezes, crackles - Routine Cardiovascular Exam Present: RRR, S1, S2 - Routine Abdominal Exam Present: soft, normoactive bowel sounds, non distended, non tender Comments: protuberant abdomen - Routine Extremities Exam Absent: cyanosis, clubbing, edema - Routine Skin Exam Comments: Right foot w/ dressing/wrapped - picture from wound care nurse earlier today shows nicely healing diabetic foot ulcer - Routine Neurological Exam Present: alert, oriented X3, CN II-XII intact. Absent: motor deficit - Routine Psychiatric Exam Present: normal affect, normal thought process, cooperative, good insight, good judgment Comments: Very pleasant patient Results - Labs CBC & Chem 7: 04/21/18 04:05 04/21/18 04:05 Assessment and Plan Assessment and Plan: Assessement: 1) SIRS - patient had documented fever and elevated WBC - source of infection unclear, potentially: - UA w/ + nitrates & negative leukocyte esterase and only 3-5 WBCs/HPF - culture is pending - CXR w/ hypoventilation and ? atelectasis vs. infiltrate in RLL - denies respiratory symptoms - Diabetic foot ulcer currently on IV abx that of Daptomycin and has PICC line - blood cultures drawn from PICC site and peripherally; diabetic foot ulcer appears to be healing well; no erythema around wound. -Diarrhea - patient on IV Daptomycin, also stool softeners which he recently stopped - check C. diff/GI panel 2) Type 2 DM - insulin requiring 3) Diabetic foot ulcer on right - followed by wound clinic and on Daptomycin IV for recent cellulitis/wound infxn 4) HTN 5) Sarcoidosis history 6) Morbid Obesity w/ BMI of 50 7) GERD Plan: Admit to Hospitalist service - inpatient Levaquin 500mg IV q 24 hours Hold Daptomycin Start Vancomycin 1g IV x one, Pharmacy to manage ID consult - Dr. Adilson Mann Wound care consult IVFs that of NS at 75 cc/hour SCD on LLE and Lovenox 40mg SQ q 24 hours for DVT prophylaxis Home meds as indicated Diabetic carb consistent diet Correctional Insulin - Medium scale Long-acting insulin - Lantus 20 units BID Labs in the AM Blood cultures pending - from peripheral site and from pick line Urine culture pending Stool Studies / C. diff ordered Patient desires to be DNR - confirmed by me in presence of nursing I discussed the plan of care w/ the patient and he verbalized understanding and agreement NORIS Assessment Severe sepsis syndrome - likely urinary source UTI Question early pneumonia Diabetic foot wound Type II DM HTN HDL GERD BPH Peripheral Neuropathy History of sarcoidosis Morbid Obesity with BMI 49.9 DVT Prophylaxis: SCD's, Lovenox GI Prophylaxis: Omeprazole Resuscitation Status: Do Not Resuscitate - Physician Narrative Physician: Phil Ge MD Narrative: Date: 04/21/18 Time: 1454 Have independently interviewed and examined pt. Chart reviewed. Reviewed above note and concur. CC: WBC elevation, feeling miserable. HPI: 72 y/o male with Type II DM and diabetic foot wound with possible osteomyelitis on treatment in with IV Daptomycin present to ED secondary to elevated WBC on weekly lab recheck. Was hospitalized at [facility] from 03/23- secondary to cellulitis of right LE not responding to outpatient antibiotics. MRI showed possible osteo. Dr Mann evaluated patient and recommended daily Daptomycin in outpatient setting. Adherent with this and with his wound care. Does note that since discharge, bowel have been variable (had diarrhea at presentation in March). About 1 week ago, start having more MCGEE, myalgias, weakness and fatigue. Not having respiratory difficulty of SOA, cough, congestion, sputum. No chest pressure, pain, heaviness, or palpitations. Appetite stable. Achy/Miserable symptoms more pronounced over this weekend. Presented on Friday for lab and wound recheck. Wound overall looking good, but with significant increase of WBC to 25 ER evaluation was recommended. In ER, patient with temp elevation to 101.9, tachycardic with HR 97-108. BP preserved. Lactic acid elevated at 2.1 and repeat WBC confirming elevation at 25 with 82% poly. UA showing evidence for infection. CXR with questionable area. Patient subsequently admitted to [facility] for treatment of his severe sepsis syndrome secondary to UTI. PHMx: Type II DM, HTN, HDL, peripheral neuropathy, BPH, Hx Sarcoidosis, GERD, OA , Hx Colonic poly, Morbid Obesity. PSxHx: Knee replacement, Colonoscopy ALL: NKDA MEDS: See MAR SHx: . Lives in [place]. Retired. No smoke/Etoh. Mary Ellen Roa is PCP FHx: Father had CAD and DM, of pancreatic CA. Mother at 88 - Dyslipidemia and Metastatic Squamous Cell CA. ROS: as in HPI - remainder of 10 point ROS negative Exam GEN: WDWNWM awake and alert HEENT: NC/AT PERRLA EOMI MMM Neck: supple, trachea midline Lungs: decreased bilaterally, no crackles or wheezes. Breaths comfortably on RA. CV: regular without murmur AB: soft obese nt/nd BS present EXT: trace BLE. Wound on right foot covered and dry. No erythema of RLE Neuro: CN II-XII intact. No focal motor deficits Psych: awake alert appropriate SKIN: warm and moist Assessment Severe sepsis syndrome - likely urinary source UTI Question early pneumonia Diabetic foot wound Type II DM HTN HDL GERD BPH Peripheral Neuropathy Morbid Obesity with BMI 49.9 Plan Inpatient admission to [facility] for treatment of severe sepsis syndrome. Levaquin initiated in ED for urinary coverage. Will continue. Vancomycin started for osteo of leg. Will consult Dr Mann for antibiotic recommendations. Continue with wound care as outline by wound team - consult placed. IVF to maintain hydration and vascular support. SCD and Lovenox for DVT prevention. Monitor blood sugars due to DM. Monitor lab. DNR per his requests. Care to return to [facility] at time of discharge from [facility]. Hospital Course Summary Disclaimer: The visit summary below is not to be considered part of the above Progress Note. Hospital Course: 04/20/18 Admit to Hospitalist service - inpatient Levaquin 500mg IV q 24 hours Hold Daptomycin. Start Vancomycin 1g IV x one, Pharmacy to manage ID consult - Dr. Adilson Mann Wound care consult IVFs that of NS at 75 cc/hour SCD on LLE and Lovenox 40mg SQ q 24 hours for DVT prophylaxis Home meds as indicated Diabetic carb consistent diet Correctional Insulin - Medium scale Long-acting insulin - Lantus 20 units BID Labs in the AM Blood cultures pending - from peripheral site and from pick line Urine culture pending Stool Studies / C. diff ordered Patient desires to be DNR - confirmed by me in presence of nursing 04/21/18 WBC with gradual decrease. Lactate decreased from 2.1 to 1.7. Patient reports no further diarrhea - indeed, feeling more constipated. Stools samples have not been sent. Urine culture growing Gram Negative Mario. Continue with Levaquin and Vancomycin.
[2018-04-20] MEDS ORDERED: HYDROCODONE/APAP 5mg/325mg TABLET PO PRN (20:43)
[2018-04-20] MEDS ORDERED: ACETAMINOPHEN 325 MG TABLET PO PRN (20:43)
[2018-04-20] MEDS ORDERED: VANCOMYCIN - PHARMACY CONSULT MC ONE (20:55)
[2018-04-20] MEDS ORDERED: GLUCOSE ORAL GEL 40% 37.5gm PO PRN (20:56)
[2018-04-20] MEDS ORDERED: DEXTROSE 50% SYRINGE 50ml (1 AMP) IVP PRN (20:56)
[2018-04-20] MEDS: NS 1,000 ML IV SCH (21:41)
[2018-04-20] MEDS: INSULIN ASPART 100unit/ml INJECTION SQ PRN (21:42)
[2018-04-20] MEDS: DUTASTERIDE 0.5 MG CAPSULE PO SCH (22:20)
[2018-04-20] MEDS: CALCIUM 250 + VIT D 125 TABLET PO SCH (22:20)
[2018-04-20] MEDS: LYSINE 500 MG TABLET PO SCH (22:20)
[2018-04-20] MEDS: OMEPRAZOLE 20 MG CAPSULE PO SCH (22:20)
[2018-04-20] MEDS: SOLIFENACIN 5mg TABLET PO SCH (22:20)
[2018-04-20] MEDS: INSULIN GLARGINE 100unit/ml INJECTION SQ SCH (22:21)
[2018-04-20] MEDS: ATORVASTATIN 40 MG TABLET PO SCH (22:21)
[2018-04-21] MEDS: OMEPRAZOLE 20 MG CAPSULE PO SCH ×3 (06:02→20:43)
[2018-04-21] MEDS: SALINE FLUSH 10ml SYRINGE IVF PRN ×2 (06:02→19:51)
[2018-04-21] MEDS: FAMOTIDINE 20 MG TABLET PO SCH ×2 (06:40→20:44)
[2018-04-21] MEDS: MULTI-VITAMIN PLAIN TABLET PO SCH ×2 (06:40→20:47)
[2018-04-21] MEDS: INSULIN ASPART 100unit/ml INJECTION SQ PRN ×3 (06:45→19:59)
[2018-04-21] MEDS: LISINOPRIL/HCTZ 20/25 MG TABLET PO SCH (08:53)
[2018-04-21] MEDS: ASPIRIN 81 MG CHEWABLE TABLET PO SCH (08:53)
[2018-04-21] MEDS: ASCORBIC ACID 500 MG TABLET PO SCH (08:53)
[2018-04-21] MEDS: CALCIUM 250 + VIT D 125 TABLET PO SCH ×2 (08:54→20:44)
[2018-04-21] MEDS: INSULIN GLARGINE 100unit/ml INJECTION SQ SCH ×2 (08:55→20:44)
[2018-04-21] MEDS: ENOXAPARIN 40 MG/0.4 ML INJECTION SQ SCH (08:55)
--- NOTE | 2018-04-21 10:59 | Pharmacy Consult-Antibiotics ---
Pharmacy Consult-Vancomycin - Laboratory Information WBC 18.6 T/MM3 (4.5-11.0) H 04/21/18 04:05 BUN 15.0 MG/DL (9-20) 04/21/18 04:05 Creatinine 0.8 mg/dL (0.8-1.5) 04/21/18 04:05 - Consult Information VANCOMYCIN CONSULT: Dx:UTI, Diabetic foot Current Renal Fx: SCr = 0.8mg/dl. Will give Vancomycin 1,500mg IV q8hrs. Will continue to monitor and adjust regimen to maintain therapeutic levels. Thank you.
[2018-04-21 12:15] VITALS: BMI 49.8
[2018-04-21] MEDS ORDERED: BISACODYL 10 MG SUPPOSITORY RECTALLY PRN (14:13)
[2018-04-21] MEDS ORDERED: PNEUMOCOCCAL 23 VACCINE 0.5ml INJECTION IM ONE (14:38)
[2018-04-21] MEDS: NS 1,000 ML IV SCH (16:16)
[2018-04-21] MEDS ORDERED: CA CARB PO SCH (17:30)
[2018-04-21] MEDS ORDERED: [UNRECOGNIZED DRUG - OTHER] PO SCH (17:30)
[2018-04-21] MEDS ORDERED: MAG HYDROX PO SCH (17:30)
[2018-04-21] MEDS ORDERED: FAMOTIDINE PO SCH (17:30)
[2018-04-21] MEDS: LEVOFLOXACIN PB 500 MG/100 ML BAG IV SCH (18:11)
[2018-04-21] MEDS: DUTASTERIDE 0.5 MG CAPSULE PO SCH (20:43)
[2018-04-21] MEDS: ATORVASTATIN 40 MG TABLET PO SCH (20:43)
[2018-04-21] MEDS: LYSINE 500 MG TABLET PO SCH (20:44)
[2018-04-21] MEDS: SOLIFENACIN 5mg TABLET PO SCH (20:44)
[2018-04-22] MEDS: OMEPRAZOLE 20 MG CAPSULE PO SCH ×2 (06:01→21:45)
[2018-04-22] MEDS: INSULIN ASPART 100unit/ml INJECTION SQ PRN ×3 (06:01→20:13)
[2018-04-22] MEDS: SALINE FLUSH 10ml SYRINGE IVF PRN ×2 (06:03→20:14)
[2018-04-22] MEDS: CALCIUM 250 + VIT D 125 TABLET PO SCH ×2 (08:31→21:40)
[2018-04-22] MEDS: ASCORBIC ACID 500 MG TABLET PO SCH (08:31)
[2018-04-22] MEDS: ENOXAPARIN 40 MG/0.4 ML INJECTION SQ SCH (08:31)
[2018-04-22] MEDS: ASPIRIN 81 MG CHEWABLE TABLET PO SCH (08:32)
[2018-04-22] MEDS: INSULIN GLARGINE 100unit/ml INJECTION SQ SCH ×2 (08:32→21:45)
--- NOTE | 2018-04-22 09:14 | Infectious Disease Consult ---
Infectious Disease Consult Date of Consultation: 04/22/18 Requesting Physician: Phil Ge Reason for Consultation: antibiotic recs History of Present Illness: Mr. Ahmadi is a 72 y/o man known to me from the wound clinic. He's been started on Daptomycin for osteomyelitis in his R foot. He reports that he's been having fever the past few days. I was called Friday by one of the Infusion RNs about his elevated WBC of 25K. I was also told that he had diarrhea. He reports that he's been having diarrhea for a few weeks, and he thought this was from the Daptomycin. He was seen in the Wound Clinic on Friday, and then sent to the ED for evaluation. He was admitted. His C. difficile test was negative. He hasn't had any more diarrhea, and in fact he reports that he's constipated. He reports that he had some dysuria a couple days ago. He does have frequency and urgency, but some of this is not new according to him. He reports some low abdominal pain. He was noted to have some pyuria and bacteriuria, and his urine culture has grown >100K col of Citrobacter. He's been started on Levaquin, and the Daptomycin was changed to Vancomycin. He reports that he's feeling better. Blood cultures are NGTD. Medications Home Medications Medication Instructions Recorded Confirmed Type Lysine [l-Lysine] 500 mg PO HS #0 tab 01/05/15 04/20/18 History Advil PM (Ibuprofen 200 2 tab PO PRN PRN tab 04/17/17 04/20/18 History mg-diphenhydramine ptajcni24 mg tablet) Prilosec (Omeprazole) 20 mg 20 mg PO BID #60 cap 02/12/18 04/20/18 Rx capsule,delayed release Calcium 250 + D [Os Reggie + D] 2 tab PO BID 03/23/18 04/20/18 History Lisinopril/Hctz 20/25 [Prinzide 1 tab PO DAILY 03/23/18 04/20/18 History 20/25] Lipitor (atorvastatin) 40 mg tablet 40 mg PO HS 04/09/18 04/20/18 History aspirin 81 mg chewable tablet 81 mg PO DAILY 04/09/18 04/20/18 History dutasteride 0.5 mg capsule 0.5 mg PO HS 04/09/18 04/20/18 History Ascorbic Acid [Vitamin C] 1,000 mg PO DAILY 04/20/18 04/20/18 History Famotidine/Ca Carb/Mag Hydrox 1 tab PO WS 04/20/18 04/20/18 History [Pepcid Complete Tablet Chew] Famotidine/Ca Carb/Mag Hydrox 2 tab PO HS 04/20/18 04/20/18 History [Pepcid Complete Tablet Chew] Insulin Aspart [Novolog Flexpen] 15 unit SQ TIDWM 04/20/18 04/20/18 History Insulin Glargine,Hum.rec.anlog 75 unit SQ BID 04/20/18 04/20/18 History [Basaglar Kwikpen U-100] Metformin [Glucophage] 1,000 mg PO BIDWM 04/20/18 04/20/18 History Multivitamin [One Daily] 1 each PO HS 04/20/18 04/20/18 History Sennosides/Docusate Sodium 1 each PO WB 04/20/18 04/20/18 History [Senokot-S Tablet] Solifenacin Succinate [Vesicare] 5 mg PO HS 04/20/18 04/20/18 History Allergies Allergy/AdvReac Type Severity Reaction Status Date / Time No Known Drug Allergies AdvReac Unknown Verified 04/20/18 17:04 [facility] Patient Stated Medical History Hypertension Yes Sleep Apnea No Diabetes Mellitus Type 2 Yes Gastroesophageal Reflux Yes Disease Other GI Yes: CONSTIPATION, diadeticulcer Hx Benign Prostatic Yes Hyperplasia Hx Renal Disease No Other Infectious Yes: chicken pox and measles as child Clinic Medical History (Last Reviewed 03/31/18 @ 08:42 by Aleena James [facility]) BPH associated with nocturia (Chronic Medical) Onychomycosis of multiple toenails with type 2 diabetes mellitus and peripheral neuropathy (Chronic Medical) Hypertension (Chronic Medical) Type 2 diabetes mellitus (Chronic Medical) Obesity (Chronic Medical) Hypercholesteremia (Chronic Medical) Adenomatous polyps (Chronic Medical) Sarcoidosis (Chronic Medical) Surgical History: R knee arthroscopy 2005. R knee replacement 2007. Colonoscopy tubulovillous adenoma 3 01/05/2015. Colonoscopy adenomatous polyps 11/06/2017 Dr. Tirado. Colonoscopy adenomatous polyps 4 11/08/2010 Dr. Tirado. Right foot surgical debridement 09/13/2011 Dr. Bautista. Delayed primary closure right foot wound 10/18/2011. Full thickness skin graft right foot 12/26/2011. Mediastinal endoscopy 07/30/2010 sarcoidosis Family History: Family History (Last Reviewed 03/31/18 @ 08:42 by Aleena James [facility]) Father , Pancreatic cancer Pancreatic cancer Heart attack Diabetes Mother , 88 Hypercholesteremia Metastatic squamous cell carcinoma - Social History Smoking status: Never smoker second hand exposure: No Alcohol intake frequency: does not drink Household members: spouse Current occupational status: retired Does patient use chewing tobacco?: No Current residence: Apartment/Private Home Review of Systems All systems PM: 10-point ROS was reviewed, no additional remarkable complaints except - Constitutional Constitutional: Present: fever(s). Absent: chills - EENMT Eyes: Absent: change in vision - Cardiovascular Cardiovascular: Absent: chest pain - Respiratory Respiratory: Absent: cough, dyspnea - Gastrointestinal Gastrointestinal: Present: constipation, diarrhea. Absent: nausea, vomiting - Genitourinary Genitourinary: Present: dysuria - Musculoskeletal Musculoskeletal: Absent: arthralgias - Integumentary/Breasts Integumentary: Absent: rash - Neurological Neurological: Absent: headache(s) Exam Vital Signs: Temperature 97.1 F 04/22/18 03:05 Pulse Rate 74 04/22/18 08:00 Respiratory Rate 18 04/22/18 08:00 Blood Pressure 152/89 H 04/22/18 08:00 Pulse Oximetry 92 04/22/18 08:00 Height/Weight/BMI: Height 1.73 m Weight 148.8 kg Body Mass Index 49.8 - Constitutional Present: no acute distress, well nourished, well developed, obese - Routine HEENT Exam Head: Present: normocephalic, atraumatic Eye: Present: EOMI, PERRL ENT: Present: mucous membranes moist, oropharynx clear, dentition normal - Routine Neck Exam Present: supple - Routine Respiratory Exam Present: CTA bilaterally - Routine Cardiovascular Exam Present: RRR - Routine Abdominal Exam Present: soft, normoactive bowel sounds, non distended, non tender. Absent: rebound, guarding - Routine Exam Comments: no ho - Routine Extremities Exam Absent: cyanosis, clubbing, edema - Routine Back/Spine/Pelvis Exam Back/Spine: Present: full ROM - Routine Skin Exam Present: intact. Absent: rash Comments: R foot wound is nearly healed - Routine Neurological Exam Present: alert, oriented X3, CN II-XII intact, normal speech. Absent: motor deficit - Routine Psychiatric Exam Present: normal affect, normal thought process Results - Labs CBC & Chem 7: 04/22/18 05:07 04/22/18 05:07 Microbiology Results: Microbiology 04/20/18 16:46 Urine, Voided (Cc/notcc) Urine Culture - Final Citrobacter freundii 04/20/18 16:47 Peripheral/Iv Start Blood Culture - Preliminary No Growth After 1 Day 04/20/18 16:41 Peripheral/Iv Start Blood Culture - Preliminary No Growth After 1 Day Impression: Sepsis, secondary to UTI UTI with C. freundii, S to quinolones Fever Leukocytosis, improving RLE cellulitis H/o chronic osteomyelitis involving the R 1st MT head, wound cultures with MSSA and Group B Strep, currently on Daptomycin as outpatient Leukocytosis DM II, IR, with peripheral neuropathy H/o sarcoidosis Morbid obesity with BMI 48.6 S/p R TKA Hypercholesterolemia Recommendation: Recommend changing to oral ciprofloxacin 500mg po BID for 7 days for UTI. I would monitor his abdominal (? bladder pain) and his constipation. If it doesn' t seem to improve, consider CT scan. He can be changed to ancef while inpatient , and return to Daptomycin when he's ready for discharge. Planned end of treatment for his foot infection is 05/06/18.
[2018-04-22] MEDS: LISINOPRIL/HCTZ 20/25 MG TABLET PO SCH (10:52)
[2018-04-22] MEDS: NS 1,000 ML IV SCH ×2 (13:02→13:50)
--- NOTE | 2018-04-22 13:13 | Wound Care Progress Note ---
Wound Center Progress Note: Pt seen 04/21/18 for wound consultation r/t DM FU on R 1st met head. [facility]; he was last seen 04/20/18. Pt is resting in bed , no complaints of pain. Wound Center tx plan: Divya to wound bed, covered with Mepilex, change q 3 days. Pt was seen at the Wound Clinic the morning of his admission to [facility]. Wound dressing was changed at that appointment. Wound dressings removed, wound cleaned, and new dressing applied during consultation visit. Continue with Divya, mepilex, and change q 3 days.
--- NOTE | 2018-04-22 13:16 | Wound Care Progress Note ---
Wound Management - Patient Status Premedicated Prior to Dressing Change: No - Wound Right Foot Wound Type: Diabetic Foot Ulcer Wound Present on Admission?: Yes Length: 0.2 Width: 0.3 Depth: 0.4 Wound Bed Appearance: [place] Wound Appearance: [place] Tunneling: No Undermining: No Drainage Amount: Scant Drainage Odor: No Odor Dressing Status: Changed Primary Dressing: Collagen Secondary Dressing: Foam Dressing Dressing Change Date: 04/21/18 Dressing Change Time: 15:00 Dressing Change Patient Tolerance: Tolerated Well Microbiology: Microbiology 04/20/18 16:46 Urine, Voided (Cc/notcc) Urine Culture - Final Citrobacter freundii 04/20/18 16:47 Peripheral/Iv Start Blood Culture - Preliminary No Growth After 1 Day 04/20/18 16:41 Peripheral/Iv Start Blood Culture - Preliminary No Growth After 1 Day
--- NOTE | 2018-04-22 13:53 | Progress Note ---
- Date 04/22/18 Subjective: Francesco is seen today in follow up. He states that overall he is feeling good. His report having a scratchy throat intermittently, however, denies having any nasal or sinus drainage currently. Urinating more frequently and did have a large bowel movement today. Appetite has been good. Denies chest pain or shortness of breath. Objective Vital signs: Temperature 97.1 F 04/22/18 03:05 Pulse Rate 74 04/22/18 08:00 Respiratory Rate 18 04/22/18 08:00 Blood Pressure 152/89 H 04/22/18 08:00 Pulse Oximetry 92 04/22/18 08:00 Height/Weight/BMI: Height 1.73 m Weight 148.8 kg Body Mass Index 49.8 - Constitutional Present: no acute distress, well nourished, well developed - Routine HEENT Exam Eye: Present: EOMI ENT: Present: mucous membranes moist, dentition normal - Routine Respiratory Exam Present: CTA bilaterally. Absent: wheezes - Routine Cardiovascular Exam Present: RRR, S1, S2. Absent: murmur - Routine Abdominal Exam Present: soft, normoactive bowel sounds, non distended. Absent: tenderness - Routine Extremities Exam Present: edema (BLE) - Routine Skin Exam Present: dry, warm - Routine Neurological Exam Present: alert, oriented X3, CN II-XII intact - Routine Lymphatic Exam Lymphatic: Absent: adenopathy - Routine Psychiatric Exam Present: normal affect Results - Labs CBC & Chem 7: 04/22/18 05:07 04/22/18 05:07 Microbiology Results: Microbiology 04/20/18 16:46 Urine, Voided (Cc/notcc) Urine Culture - Final Citrobacter freundii 04/20/18 16:47 Peripheral/Iv Start Blood Culture - Preliminary No Growth After 1 Day 04/20/18 16:41 Peripheral/Iv Start Blood Culture - Preliminary No Growth After 1 Day Assessment and Plan Assessment and Plan: Impression Severe sepsis syndrome - likely urinary source UTI with Citrobacter freundii Question early pneumonia Diabetic foot wound Type II DM HTN HDL GERD BPH Peripheral Neuropathy Morbid Obesity with BMI 49.9 Plan: Date consultation by Dr. Mann. She recommends oral Cipro twice a day for 7 days for treatment of urinary tract infection. We will continue with Ancef 2 grams IV every 8 hours for treatment of ongoing osteomyelitis. Recommends at time of discharge. We will change back to outpatient daptomycin. Leukocytosis improved, today 10.9 Consultation with wound care, chronic diabetic foot ulcer. Dysuria has improved and bowels are moving regularly. Monitor blood sugars and continue any tenuous insulin as ordered IV Fluids discontinued SCD on LLE and Lovenox 40mg SQ q 24 hours for DVT prophylaxis DVT Prophylaxis: SCD's, Lovenox Resuscitation Status: Do Not Resuscitate - Time spent with patient Time with patient PN: 25 minutes - Physician Narrative Physician: Phil Ge MD Narrative: Date: 04/22/18 Time: 1719 Have independently interviewed and examined pt. Chart reviewed. Case discussed with my HARDSCAPE FOREMAN. Care plan developed with my supervision; agree with above. Feeling much better today! Not achy or miserable. MCGEE improved. Noted slight cough, but breathing well. Did have 2 normal stools today-low ab pain much decreased post first stool. Urine stable. No f/c. Lungs: decreased, no distress CV: regular AB: soft obese nt MSE: awake alert Plan: Vancomycin changed to cefazolin as per ID, recommends continuing levofloxacin for urinary coverage but can change to oral. Can stop IVF as oral drive well and sepsis resolved. Recheck lab tomorrow. Possible home tomorrow if continues to do well. Hospital Course Summary Disclaimer: The visit summary below is not to be considered part of the above Progress Note. Hospital Course: 04/20/18 Admit to Hospitalist service - inpatient Levaquin 500mg IV q 24 hours Hold Daptomycin. Start Vancomycin 1g IV x one, Pharmacy to manage ID consult - Dr. Adilson Mann Wound care consult IVFs that of NS at 75 cc/hour SCD on LLE and Lovenox 40mg SQ q 24 hours for DVT prophylaxis Home meds as indicated Diabetic carb consistent diet Correctional Insulin - Medium scale Long-acting insulin - Lantus 20 units BID Labs in the AM Blood cultures pending - from peripheral site and from pick line Urine culture pending Stool Studies / C. diff ordered Patient desires to be DNR - confirmed by me in presence of nursing 04/21/18 WBC with gradual decrease. Lactate decreased from 2.1 to 1.7. Patient reports no further diarrhea - indeed, feeling more constipated. Stools samples have not been sent. Urine culture growing Gram Negative Mario. Continue with Levaquin and Vancomycin. 04/22/[address] Mann. Recommends oral Cipro twice a day for 7 days for treatment of urinary tract infection. Change vanco to Ancef 2 grams IV every 8 hours for treatment of ongoing osteomyelitis. Recommends at time of discharge patient change back to outpatient daptomycin. Leukocytosis improved, today 10.9. Consultation with wound care, chronic diabetic foot ulcer. Dysuria has improved and bowels are moving regularly. Monitor blood sugars and continue any tenuous insulin as ordered. IV Fluids discontinued.
[2018-04-22] MEDS: CEFAZOLIN 2 G in NS 100 ML IV SCH (18:01)
[2018-04-22] MEDS: DUTASTERIDE 0.5 MG CAPSULE PO SCH (21:39)
[2018-04-22] MEDS: MULTI-VITAMIN PLAIN TABLET PO SCH (21:39)
[2018-04-22] MEDS: SOLIFENACIN 5mg TABLET PO SCH (21:39)
[2018-04-22] MEDS: LYSINE 500 MG TABLET PO SCH (21:39)
[2018-04-22] MEDS: ATORVASTATIN 40 MG TABLET PO SCH (21:39)
[2018-04-22] MEDS: FAMOTIDINE 20 MG TABLET PO SCH (21:40)
[2018-04-22] MEDS: CIPROFLOXACIN 750 MG TABLET PO SCH (21:56)
[2018-04-23] MEDS: SALINE FLUSH 10ml SYRINGE IVF PRN ×2 (00:33→06:48)
[2018-04-23] MEDS: CEFAZOLIN 2 G in NS 100 ML IV SCH ×2 (00:33→09:51)
[2018-04-23 05:09] VITALS: RESP 20
[2018-04-23] MEDS: OMEPRAZOLE 20 MG CAPSULE PO SCH (06:18)
[2018-04-23] MEDS: INSULIN ASPART 100unit/ml INJECTION SQ PRN ×2 (06:47→11:22)
[2018-04-23 08:13] VITALS: BP 172/88; PULSE 77; TEMP 95.6; O2SAT 94
[2018-04-23] MEDS: CIPROFLOXACIN 750 MG TABLET PO SCH (08:30)
[2018-04-23] MEDS: CALCIUM 250 + VIT D 125 TABLET PO SCH (08:30)
[2018-04-23] MEDS: ASPIRIN 81 MG CHEWABLE TABLET PO SCH (08:30)
[2018-04-23] MEDS: LISINOPRIL/HCTZ 20/25 MG TABLET PO SCH (08:30)
[2018-04-23] MEDS: ASCORBIC ACID 500 MG TABLET PO SCH (08:30)
[2018-04-23] MEDS: ENOXAPARIN 40 MG/0.4 ML INJECTION SQ SCH (08:31)
[2018-04-23] MEDS: INSULIN GLARGINE 100unit/ml INJECTION SQ SCH (08:31)
--- NOTE | 2018-04-23 10:50 | Progress Note ---
- Date 04/23/18 Subjective: F/U: Severe sepsis syndrome, UTI with Citrobacter freundii Doing well this morning. No f/c. Breathing well. Not feeling achy/weak. Eating well. Bowels moving well. Objective Vital signs: Temperature 95.6 F L 04/23/18 08:00 Pulse Rate 77 04/23/18 08:00 Respiratory Rate 20 04/23/18 04:00 Blood Pressure 172/88 H 04/23/18 08:00 Pulse Oximetry 94 04/23/18 08:00 Height/Weight/BMI: Height 1.73 m Weight 149.1 kg Body Mass Index 49.8 - Constitutional Present: no acute distress, well nourished, well developed, morbidly obese, cooperative - Routine HEENT Exam Head: Present: normocephalic, atraumatic Eye: Present: EOMI, PERRL, normal accommodation - Routine Respiratory Exam Present: decreased breath sounds. Absent: rales, respiratory distress, rhonchi , wheezes, crackles - Routine Cardiovascular Exam Present: RRR, no murmur - Routine Abdominal Exam Present: soft, normoactive bowel sounds. Absent: non distended, non tender, guarding - Routine Extremities Exam Present: edema (Trace LE), pulses intact. Absent: cyanosis, clubbing - Routine Musculoskeletal Exam Musculoskeletal: Present: no clubbing or cyanosis - Routine Skin Exam Present: dry, warm - Routine Neurological Exam Present: alert, oriented X3, CN II-XII intact, moving all extremities, vision grossly intact, hearing grossly intact, normal speech. Absent: motor deficit, altered mental status - Routine Psychiatric Exam Present: normal affect, normal thought process, cooperative Results - Labs CBC & Chem 7: 04/23/18 05:01 04/23/18 05:01 Microbiology Results: Microbiology 04/20/18 16:41 Peripheral/Iv Start Blood Culture - Preliminary No Growth After 2 Days 04/20/18 16:47 Peripheral/Iv Start Blood Culture - Preliminary No Growth After 2 Days 04/20/18 16:46 Urine, Voided (Cc/notcc) Urine Culture - Final Citrobacter freundii Assessment and Plan Assessment and Plan: Impression Severe sepsis syndrome - likely urinary source UTI with Citrobacter freundii Question early pneumonia Diabetic foot wound Type II DM HTN HDL GERD BPH Peripheral Neuropathy Morbid Obesity with BMI 49.9 Plan Clinically improved. WBC normal. Sepsis symptoms resolved. Will discharge to home. Ciprofloxacin 500mg BID for 4 more days, start tonight. Continue with daptomycin in infusion therapy as prior to admission. Continue wound care at wound center. F/U with Mary Ellen Nieves in 1 week. See orders for details. Time spent with patient care and discharge greater than 30 minutes. DVT Prophylaxis: SCD's, Lovenox Resuscitation Status: Do Not Resuscitate - Physician Narrative Physician: Phil Ge MD Narrative: Date: 04/23/18 Time: 1047 Hospital Course Summary Disclaimer: The visit summary below is not to be considered part of the above Progress Note. Hospital Course: 04/20/18 Admit to Hospitalist service - inpatient Levaquin 500mg IV q 24 hours Hold Daptomycin. Start Vancomycin 1g IV x one, Pharmacy to manage ID consult - Dr. Adilson Mann Wound care consult IVFs that of NS at 75 cc/hour SCD on LLE and Lovenox 40mg SQ q 24 hours for DVT prophylaxis Home meds as indicated Diabetic carb consistent diet Correctional Insulin - Medium scale Long-acting insulin - Lantus 20 units BID Labs in the AM Blood cultures pending - from peripheral site and from pick line Urine culture pending Stool Studies / C. diff ordered Patient desires to be DNR - confirmed by me in presence of nursing 04/21/18 WBC with gradual decrease. Lactate decreased from 2.1 to 1.7. Patient reports no further diarrhea - indeed, feeling more constipated. Stools samples have not been sent. Urine culture growing Gram Negative Mario. Continue with Levaquin and Vancomycin. 04/22/[address] Mann. Recommends oral Cipro twice a day for 7 days for treatment of urinary tract infection. Change vanco to Ancef 2 grams IV every 8 hours for treatment of ongoing osteomyelitis. Recommends at time of discharge patient change back to outpatient daptomycin. Leukocytosis improved, today 10.9. Consultation with wound care, chronic diabetic foot ulcer. Dysuria has improved and bowels are moving regularly. Monitor blood sugars and continue any tenuous insulin as ordered. IV Fluids discontinued. 04/23/18 Clinically improved. WBC normal. Sepsis symptoms resolved. Will discharge to home. Ciprofloxacin 500mg BID for 4 more days, start tonight. Continue with daptomycin in infusion therapy as prior to admission. Continue wound care at wound center. F/U with Mary Ellen Nieves in 1 week. See orders for details.
--- NOTE | 2018-04-23 21:27 | Discharge Summary ---
Discharge Information Date of admission: 04/20/18 19:49 Anticipated date of discharge: 04/23/18 Attending Physician: Phil Ge MD Primary care physician: Mary Ellen Nieves APRN Consults: Physician Consult: Beth Mann Reason For Exam: On Daptomycin IV for DM foot ulcer [facility] Consult - Discharge Diagnosis (1) Sepsis Status: Acute (2) UTI (urinary tract infection) Status: Acute Discharge diagnosis Severe sepsis syndrome Associated conditions and complications UTI with Citrobacter freundii Question early pneumonia Diabetic foot wound Type II DM HTN HDL GERD BPH Peripheral Neuropathy Morbid Obesity with BMI 49.9 - Laboratory Labs: Admit Lab 04/20/18 16:41 WBC 25.0 H Hgb 13.6 Hct 40.6 L MCV 83.9 Plt Count 205 Neutrophils % (Manual) 82.0 H Lymphocytes % (Manual) 9.0 L Monocytes % (Manual) 7.0 Eosinophils % (Manual) 2.0 Admit Lab 04/20/18 16:41 Sodium 141 Potassium 4.1 Chloride 103 Carbon Dioxide 25 Anion Gap 13 BUN 18.0 Creatinine 0.9 GFR Calculation 83 BUN/Creatinine Ratio 20 Glucose 211 H Calculated Osmolality 279 Calcium 9.2 Total Bilirubin 1.30 AST 27 ALT 49 Alkaline Phosphatase 71 Total Protein 7.4 Albumin 4.1 Globulin 3.3 Albumin/Globulin Ratio 1.2 Plasma Lactate 2.1 Laboratory Tests 04/22/18 05:07 C-Reactive Protein 148.9 H 04/23/18 05:01 04/23/18 05:01 - Microbiology Microbiology 04/20/18 16:41 Peripheral/Iv Start Blood Culture - Preliminary No Growth After 3 Days 04/20/18 16:47 Peripheral/Iv Start Blood Culture - Preliminary No Growth After 3 Days 04/20/18 16:46 Urine, Voided (Cc/notcc) Urine Culture - Final Citrobacter freundii - Radiology Radiology: Date of Exam: 04/20/18 Type of Exam: XR chest 2V FINDINGS: The lung barba are hypoventilated. There is linear atelectasis versus early infiltrate in the right lung base. No dense focal airspace consolidation is seen. The remaining lung barba are clear. The cardiomediastinal silhouette is normal. The mediastinum is not widened. The trachea is midline. The pulmonary vascularity is not engorged. The costophrenic angles are sharp. The bony thorax shows early degenerative changes. A right-sided PICC line is in place. IMPRESSION: 1. The lung barba are hypoventilated with linear atelectasis versus early infiltrate at the right lung base. 2. Right-sided PICC line in place. History of Present Illness HPI: Mr. Ahmadi is a 72 y/o w/ DM type 2 insulin-requiring w/ diabetic foot ulcer and multiple other medical conditions who is currently undergoing treatment w/ IV Daptomycin (x 3 weeks thus far) for a diabetic foot ulcer who presents to ED on the advice of the wound clinic b/c his labs done today showed a WBC of 25K w/ 82 % neutrophils, which is high compared to the 12K last week. Patient states that he has had a subjective fever the past few days with intermittent MCGEE, some joint aches and pains especially in the knees and some diarrhea, though he has been taking Miralax and another stool softener up until last week. Patient states he really started noticing the symptoms yesterday - fatigue, generalized weakness, malaise, joint aches and the diarrhea seemed more frequent. He did note one episode of dysuria Friday night, but none after that. Pt denies cough, chest pain, nausea, vomiting, SOA, or congestion, denies focal neuro deficit and denies melena and hematochezia. He has noted some generalized weakness and fatigue the past few days In the ER patient had a CXR read as overall hypoventilation and ? atelectasis vs. infiltrate in RLL, a UA showing + nitrates but negative leukocyte esterase and 3-5 WBCs/HPF and 4+ bacteria and a lactate of 2.1. He was given 2L IVFs and started on Levaquin 500mg IV x one dose. Patient had temp of 100.9F in ER. Currently Afebrile and states he is feeling better. Patient to be admitted to the Hospitalist service for further evaluation and management. For complete details of the H&P refer to that document. Objective Vital signs: Temperature 95.6 F L 04/23/18 08:00 Pulse Rate 77 04/23/18 08:00 Respiratory Rate 20 04/23/18 04:00 Blood Pressure 172/88 H 04/23/18 08:00 Pulse Oximetry 94 04/23/18 08:00 Height/Weight/BMI: Height 1.73 m Weight 149.1 kg Body Mass Index 49.8 Hospital Course This is a general summary of the patient's hospital course. For more details refer to the complete medical record. Hospital course: 04/20/18 Admit to Hospitalist service - inpatient Levaquin 500mg IV q 24 hours Hold Daptomycin. Start Vancomycin 1g IV x one, Pharmacy to manage ID consult - Dr. Adilson Mann Wound care consult IVFs that of NS at 75 cc/hour SCD on LLE and Lovenox 40mg SQ q 24 hours for DVT prophylaxis Home meds as indicated Diabetic carb consistent diet Correctional Insulin - Medium scale Long-acting insulin - Lantus 20 units BID Labs in the AM Blood cultures pending - from peripheral site and from pick line Urine culture pending Stool Studies / C. diff ordered Patient desires to be DNR - confirmed by me in presence of nursing 04/21/18 WBC with gradual decrease. Lactate decreased from 2.1 to 1.7. Patient reports no further diarrhea - indeed, feeling more constipated. Stools samples have not been sent. Urine culture growing Gram Negative Mario. Continue with Levaquin and Vancomycin. 04/22/[address] Mann. Recommends oral Cipro twice a day for 7 days for treatment of urinary tract infection. Change vanco to Ancef 2 grams IV every 8 hours for treatment of ongoing osteomyelitis. Recommends at time of discharge patient change back to outpatient daptomycin. Leukocytosis improved, today 10.9. Consultation with wound care, chronic diabetic foot ulcer. Dysuria has improved and bowels are moving regularly. Monitor blood sugars and continue any tenuous insulin as ordered. IV Fluids discontinued. 04/23/18 Clinically improved. WBC normal. Sepsis symptoms resolved. Will discharge to home. Ciprofloxacin 500mg BID for 4 more days, start tonight. Continue with daptomycin in infusion therapy as prior to admission. Continue wound care at wound center. F/U with Mary Ellen Nieves in 1 week. See orders for details. Time spent with patient: discharge greater than 30 minutes Resuscitation Status: Do Not Resuscitate Discharge Plan - Discharge Disposition Discharge Date: 04/23/18 Disposition: 01 Discharged Home, Self-Care *Condition: Improved Reason For Visit (Visit label in EMR): UTI, Diabetic foot wound - Discharge Medications *Discharge Medications: New Ciprofloxacin [Cipro 500 mg] 500 mg PO BID #9 tab Peg 3350 238 G Bottle [Miralax] 17 gm PO DAILY PRN #1 bottle PRN Reason: Constipation Continue Calcium 250 + D [Os Reggie + D] 2 tab PO BID Lisinopril/Hctz 20/25 [Prinzide 20/25] 1 tab PO DAILY Famotidine/Ca Carb/Mag Hydrox [Pepcid Complete Tablet Chew] 2 tab PO HS Famotidine/Ca Carb/Mag Hydrox [Pepcid Complete Tablet Chew] 1 tab PO WS Multivitamin [One Daily] 1 each PO HS Insulin Aspart [Novolog Flexpen] 15 unit SQ TIDWM Ascorbic Acid [Vitamin C] 1,000 mg PO DAILY Metformin [Glucophage] 1,000 mg PO BIDWM Insulin Glargine,Hum.rec.anlog [Basaglar Kwikpen U-100] 75 unit SQ BID Solifenacin Succinate [Vesicare] 5 mg PO HS Lysine [l-Lysine] 500 mg PO HS #0 tab Sennosides/Docusate Sodium [Senokot-S Tablet] 1 each PO WB Advil PM (Ibuprofen 200 mg-diphenhydramine mg tablet) 2 tab PO PRN PRN tab PRN Reason: Pain Lipitor (atorvastatin) 40 mg tablet 40 mg PO HS aspirin 81 mg chewable tablet 81 mg PO DAILY dutasteride 0.5 mg capsule 0.5 mg PO HS Prilosec (Omeprazole) 20 mg capsule,delayed release 20 mg PO BID #60 cap - Discharge Packet/Instructions *Diet: 2000 KCAL ADA low sodium *Activity: As tolerated *Pain Management/Treatment: Continue home pain medicaitons. *Wound Care: Wound Center tx plan: Divya to wound bed, covered with Mepilex, change q 3 days. Additional Instructions: Start ciprofloxacin 500mg this evening and continue twice a day until course completed. Continue with outpatient IV daptomycin and wound center follow up as prior to admission. *Expected Signs/Symptoms: Resolution of fever/chills and aches. Continued healing of foot wound with IV antibiotic and wound care. *Notify Physician if: Temp >100.4. Intractable nasuea or vomitting. Intractable diarrhea. Increasing cough or difficulty breathing. *During Business Hours Contact: Mary Ellen Nieves *After Business Hours Contact: Call [facility] [place] and have your care provider contacted. *Pending Lab/Results: No Pending Lab - Referrals/Follow Up *Referrals/Follow Up: Mary Ellen Nieves, BOOKKEEPING ASSISTANT [Primary Care Provider] - - Patient Handouts Patient Handouts: Urinary Tract Infection in Men (GEN) - Dismissal Complete Discharge Instructions are:: Complete Physician Narrative - Narrative Physician: Phil Ge MD Attestation Narrative: Date: 04/23/18Time: 2123 I have independently interviewed and examined patient prior to discharge. See my progress note for details. Medically stable for discharge.
== END 2018-04-23 13:40 | disposition home or self-care (01) | DRG 871 ==
LOC: ED 14:52 → EDHOLD 19:49 → MED 20:25
PROVIDERS: ADMIT Internal Medicine; ATTEND Hospitalist